=== PATIENT | female | born 1930 | race Asian ===

== ENCOUNTER 2019-02-09 12:37 | Inpatient (IN) ==
--- NOTE | 2019-02-09 14:13 | Pharmacy Consult Notes ---
[facility] Pharmacy VTE Monitoring - Patient Demographics Admission date: 02/09/19 Report Date: 02/09/19 Time: 14:13 Allergies/Adverse Reactions: Patient Allergies No Known Allergies Allergy (Verified 10/06/18 09:02) Height: 1.63 m Weight: 61.263 kg - VTE Risk Was VTE Risk Assessment Performed: Yes VTE Risk Level: Moderate Risk Clinical Trial Participant: No - Prophylaxis VTE Prophylaxis Ordered?: Yes Types of VTE Prophylaxis: TEDS Knee High Location of Applied Device: Not Applicable
[2019-02-09 14:35] LABS: Albumin Level 2.3 gm/dL (3.4-5.0); Albumin/Globulin Ratio 0.6 (1.1-1.8); Anion Gap 11.6 mEq/L (5-15); Bilirubin,Total 0.2 mg/dL (0.2-1.0); Calcium 8.9 mg/dL (8.5-10.1); Globulin 4.1 gm/dl (1.3-3.2); Total Protein,Serum 6.4 gm/dL (6.4-8.2)
[2019-02-09 14:38] LABS: Basophils # 0.1 K/mm3 (0-0.2); Basophils % 0.6 % (0.1-2.0); Eosinophils # 0.2 K/mm3 (0.0-0.4); Eosinophils % 2.1 % (0.1-12.0); Hematocrit 34.5 % (37.0-47.0); Lymphocytes # 0.9 K/mm3 (0.7-4.5); Lymphocytes % 10.4 % (10-50); Mean Corpuscular Volume 95.5 fl (81-99); Mean Platelet Volume 8.2 fl (7.4-10.4); Monocytes # 0.3 K/mm3 (0.1-1.0); Monocytes % 3.5 % (1.7-9.3); Neutrophils # 7.4 K/mm3 (1.8-7.8); Neutrophils % 83.3 % (37.0-80.0); Platelet Count 408 K/mm3 (142-424); Red Blood Count 3.61 M/mm3 (4.20-5.40); Red Cell Distribution Width 15.1 % (11.5-17.5); White Blood Count 8.8 K/mm3 (4.8-10.8)
--- NOTE | 2019-02-09 16:48 | History & Physical Report ---
*Admission Date: 02/09/19 <Kimmy Biggs 02/09/19 16:51> *Chief complaint: CHEST PAIN AND SOB <Kimmy Biggs 02/09/19 16:51> *History of present illness: Ms Prado is an 88 year old female with a history of HTN, COPD, ulcers, GERD, At fib, PE, and CAD who has been treated for a respiratory infection for the past week. She has completed a course of Zithromax. She was visited by Kimmy Biggs APRN at her residence in [facility]. The patient related that she actually felt worse with a productive cough, SOB and now with mid sternal CP with any activity. She described having CP when up to the bathroom which resolved with rest. She was eating and drinking less. She denied having CP at the time of the exam. Chest exam revealed bilateral crackles. She appeared ashen and dehydrated. Condition was discussed with Dr. Knox and she was admitted to [facility] due to chest pain and worsening pulmonary status after completion of the ABX. <Kimmy Biggs 02/09/19 17:18> [facility] History Medical History: Reports:: Arrhythmia, Atherosclerotic Heart Disease, Atrial Fibrillation, Congestive Heart Failure, Chronic Obstructive Pulmonary Disease (COPD), Coronary Artery Disease, Diabetes Mellitus Type 2, Gastroesophageal Reflux Disease(GERD), Gastrointestinal Bleed, Hyperlipidemia, Hypertension, Internal Pacemaker, Pulmonary Embolism, Ulcer Denies:: Cancer, MRSA <Kimmy Biggs 02/09/19 17:18> *Have you ever received a pneumonia vaccine?: Yes <Kimmy Biggs 02/09/19 16:51> *Have you received a flu vaccine this season?: Yes <Kimmy Biggs 02/09/19 16:51> Other Medical History: Reports: Anemia, Glaucoma <Kimmy Biggs 02/09/19 16:51> Other Surgeries: Yes: Cardiac Catheterization, Cardiac Surgery, Cholecystectomy, Pacemaker, Other ([facility]- no stents) <Kimmy Biggs 02/09/19 16:51> Amputation: No <Kimmy Biggs 02/09/19 16:51> Fractures: Yes (rt knee) <Kimmy Biggs 02/09/19 16:51> Comment: REPAIR OF FRACTURED PATELLA <Kimmy Biggs 19 16:51> - *Social History Educational Level: Completed High School <KalyanKimmy 02/09/19 16:51> Smoking Status: Former smoker <KalyanKimmy 02/09/19 16:51> Tobacco Type: cigarettes <KalyanKimmy 02/09/19 16:51> Alcohol Intake: never <KalyanKimmy 02/09/19 16:51> Alcohol Intake Frequency:: other <KalyanKimmy 02/09/19 16:51> Substance Use Type: denies use <KalyanKimmy 02/09/19 16:51> *Occupational Status:: retired <KalyanKimmy 02/09/19 16:51> Housing: assisted living facility <KalyanKimmy 02/09/19 16:51> Household Members: none <KalyanKimmy 02/09/19 16:51> *Travel in the last 8 weeks: None <BiggsKimmy 02/09/19 16:51> Family Hx:: Coronary Artery Disease, Hypertension <KalyanKimmy 02/09/19 17:18> Review of Systems - Constitutional Reports lack of energy, Denies fever(s), Denies headache(s) <BiggsKimmy 02/09/19 17:18> - ENT Denies ear pain, Denies sore throat <BiggsKimmy 02/09/19 17:18> - *Cardiovascular Reports chest pain, Reports chest pain with activity, Reports shortness of breath <BiggsKimmy 02/09/19 17:18> - *Respiratory Reports change in phlegm color, Reports chest congestion, Reports cough, Denies coughing up blood <BiggsKimmy - 02/09/19 17:18> - *Gastrointestinal Denies abdominal pain, Denies constipation, Denies nausea, Denies vomiting <Biggs,Kimmy - 02/09/19 17:18> - *Genitourinary Denies difficulty urinating <Biggs,Kimmy - 02/09/19 17:18> - *Musculoskeletal Reports muscle weakness, Denies body aches <Radha Biggshy 02/09/19 17:18> Comments: WALKS WITH A WALKER <Kimmy Biggs - 02/09/19 17:18> - *Neurologic Denies abnormal speech, Denies behavioral changes, Denies seizure-like activity, Denies headache(s) <Kimmy Biggs - 02/09/19 17:18> Meds Home Medications Medication Instructions Recorded Confirmed Type Saccharomyces adelinadii 250 mg 250 mg PO BID 09/09/17 02/09/19 History capsule apixaban 2.5 mg tablet 2.5 mg PO BID 09/09/17 02/09/19 History calcium carbonate 600 mg calcium 600 mg PO DAILY tab 09/09/17 02/09/19 History (1,500 mg) tablet mirtazapine 15 mg tablet 15 mg PO HS 09/09/17 02/09/19 History nitroglycerin 0.4 mg sublingual 0.4 mg SUBLINGUAL Q5-15M PRN 09/09/17 02/09/19 History tablet sennosides 8.6 mg tablet 8.6 mg PO BID PRN 09/09/17 02/09/19 History ferrous sulfate 325 mg (65 mg 325 mg PO BID tab 04/07/18 02/09/19 History iron) tablet metoprolol succinate ER 25 mg 50 mg PO BID tab 04/07/18 02/09/19 History tablet,extended release 24 hr verapamil ER 180 mg 24 hr 180 mg PO DAILY 04/07/18 02/09/19 History capsule,extended release Acetaminophen [Arthritis Pain 650 mg PO TID 02/09/19 02/09/19 History Relief] Ascorbic Acid 500 mg PO DAILY 02/09/19 02/09/19 History Atorvastatin Calcium [Lipitor 10mg 10 mg PO HS 02/09/19 02/09/19 History Tablet] Cholecalciferol (Vitamin D3) 2,000 units PO DAILY 02/09/19 02/09/19 History [Vitamin D3] Famotidine 40 mg PO HS 02/09/19 02/09/19 History Gabapentin [Neurontin 300mg 300 mg PO BID 02/09/19 02/09/19 History capsule] Loperamide HCl [Anti-Diarrhea] 2 mg PO DIRECTED 02/09/19 02/09/19 History Multivitamin [One-Daily 1 each PO DAILY 02/09/19 02/09/19 History Multi-Vitamin] Potassium Chloride [K-Tab ER 20 20 meq PO BID 02/09/19 02/09/19 History mEq] Vitamin B Complex [B Complex] 1 each PO DAILY 02/09/19 02/09/19 History <Kale Knox - 02/09/19 18:15> Allergies Allergy/AdvReac Type Severity Reaction Status Date / Time No Known Allergies Allergy Verified 10/06/18 09:02 <Kale Knox - 02/09/19 18:15> Exam Vital signs and Labs for Last 24 Hours: Temp Pulse Resp BP Pulse Ox 97.8 F 73 18 126/65 91 L 02/09/19 15:24 02/09/19 15:24 02/09/19 15:24 02/09/19 15:24 02/09/19 15:24 Laboratory Results - last 24 hr 02/09/19 14:10: Sodium 145, Potassium 4.6, Chloride 112 H, Carbon Dioxide 26, Anion Gap 11.6, BUN 27 H, Creatinine 0.79, Estimated Creat Clear 38, Estimated GFR 69, Est GFR ( Amer) 83, Glucose 85, Calcium 8.9, Total Bilirubin 0.2, AST 21, ALT 9 L, Alkaline Phosphatase 63, Total Protein 6.4, Albumin 2.3 L, Globulin 4.1 H, Albumin/Globulin Ratio 0.6 L 02/09/19 14:10: Mycoplasma pneumon IgM Non-reactive 02/09/19 14:10: Troponin I < 0.02 02/09/19 14:10: WBC 8.8, RBC 3.61 L, Hgb 10.0 L, Hct 34.5 L, MCV 95.5, MCH 27.7, MCHC 29.0 L, RDW 15.1, Plt Count 408, MPV 8.2, Neut % (Auto) 83.3 H, Lymph % (Auto) 10.4, [place] % (Auto) 3.5, Eos % (Auto) 2.1, Baso % (Auto) 0.6, Neut # (Auto) 7.4, Lymph # (Auto) 0.9, [place] # (Auto) 0.3, Eos # (Auto) 0.2, Baso # (Auto) 0.1 <Kale Knox - 02/09/19 18:15> Temp Pulse Resp BP Pulse Ox 97.8 F 73 18 126/65 91 L 02/09/19 15:24 02/09/19 15:24 02/09/19 15:24 02/09/19 15:24 02/09/19 15:24 Laboratory Results - last 24 hr 02/09/19 14:10: Sodium 145, Potassium 4.6, Chloride 112 H, Carbon Dioxide 26, Anion Gap 11.6, BUN 27 H, Creatinine 0.79, Estimated Creat Clear 38, Estimated GFR 69, Est GFR ( Amer) 83, Glucose 85, Calcium 8.9, Total Bilirubin 0.2, AST 21, ALT 9 L, Alkaline Phosphatase 63, Total Protein 6.4, Albumin 2.3 L, Globulin 4.1 H, Albumin/Globulin Ratio 0.6 L 02/09/19 14:10: Troponin I < 0.02 02/09/19 14:10: WBC 8.8, RBC 3.61 L, Hgb 10.0 L, Hct 34.5 L, MCV 95.5, MCH 27.7, MCHC 29.0 L, RDW 15.1, Plt Count 408, MPV 8.2, Neut % (Auto) 83.3 H, Lymph % (Auto) 10.4, [place] % (Auto) 3.5, Eos % (Auto) 2.1, Baso % (Auto) 0.6, Neut # (Auto) 7.4, Lymph # (Auto) 0.9, [place] # (Auto) 0.3, Eos # (Auto) 0.2, Baso # (Auto) 0.1 <Kimmy Biggs - 02/09/19 16:51> I & O for Last 24 hours: Intake & Output 02/07/19 02/08/19 02/09/19 02/10/19 11:59 11:59 11:59 11:59 Intake Total 120 / 120 Balance 120 / 120 Weight 135 lb 1 oz <Kale Knox - 02/09/19 18:15> Intake & Output 02/07/19 02/08/19 02/09/19 02/10/19 11:59 11:59 11:59 11:59 Intake Total 60 / 60 Balance 60 / 60 Weight 135 lb 1 oz <Kimmy Biggs - 02/09/19 16:51> Radiology Reports for the Last 24 Hours: CXR 02/09/19 IMPRESSION: Left lower lobe pneumonia/volume loss with effusion. <Kimmy Biggs 02/09/19 17:18> - Constitutional no acute distress <Kimmy Biggs 02/09/19 17:18> Comments: sitting in recliner in her room at and appears not to feel well <Kimmy Biggs 02/09/19 17:18> - *Routine HEENT Exam Head: Present: normocephalic, atraumatic <Kimmy Biggs 02/09/19 17:18> Eye: Absent: conjunctival icterus, scleral injection <Kimmy Biggs 02/09/19 17:18> ENT: Present: mucous membranes moist <Kimmy Biggs 02/09/19 17:18> - *Routine Neck Exam Absent: lymphadenopathy, thyromegaly <Kimmy Biggs 02/09/19 17:18> - *Routine Respiratory Exam Comments: bilateral basilar crackles > on the right <Kimmy Biggs 02/09/19 17:18> - *Routine Cardiovascular Exam Present: RRR <Kimmy Biggs 02/09/19 17:18> - *Routine Abdominal Exam Present: soft, normoactive bowel sounds. Absent: tenderness <Kimmy Biggs 02/09/19 17:18> - *Routine Extremities Exam Absent: edema <Kimmy Biggs 02/09/19 17:18> - *Routine Neurological Exam Present: alert, oriented X3 <[facility] 02/09/19 17:18> Assessment and Plan (1) Pneumonia Current visit: Yes Status: Acute Category: Medical Code(s): J18.9 - Pneumonia, unspecified organism (2) Chest pain Current visit: No Status: Acute Qualifiers: Qualified Code(s): R07.2 - Precordial pain Category: Medical Code(s): R07.9 - Chest pain, unspecified (3) CAD (coronary artery disease) Current visit: No Status: Chronic Qualifiers: Coronary Disease-Associated Artery/Lesion type: [place] artery [place] vs. transplanted heart: [place] heart Associated angina: without angina Qualified Code(s): I25.10 - Atherosclerotic heart disease of [place] coronary artery without angina pectoris Category: Medical Code(s): I25.10 - Atherosclerotic heart disease of [place] coronary artery without angina pectoris (4) COPD (chronic obstructive pulmonary disease) Current visit: No Status: Chronic Qualifiers: COPD type: unspecified COPD Qualified Code(s): J44.9 - Chronic obstructive pulmonary disease, unspecified Category: Medical Code(s): J44.9 - Chronic obstructive pulmonary disease, unspecified (5) History of atrial fibrillation Current visit: No Status: Chronic Category: Medical Code(s): Z86.79 - Personal history of other diseases of the circulatory system (6) Neuropathy Current visit: No Status: Chronic Category: Medical Code(s): G62.9 - Polyneuropathy, unspecified (7) PAF (paroxysmal atrial fibrillation) Current visit: No Status: Chronic Category: Medical Code(s): I48.0 - Paroxysmal atrial fibrillation (8) Pacemaker Current visit: No Status: Chronic Category: Medical Code(s): Z95.0 - Presence of cardiac pacemaker <Kale Knox - 02/09/19 18:15> (1) Pneumonia Current visit: Yes Status: Acute Category: Medical Code(s): J18.9 - Pneumonia, unspecified organism (2) Chest pain Current visit: No Status: Acute Qualifiers: Qualified Code(s): R07.2 - Precordial pain Category: Medical Code(s): R07.9 - Chest pain, unspecified (3) CAD (coronary artery disease) Current visit: No Status: Chronic Qualifiers: Coronary Disease-Associated Artery/Lesion type: [place] artery [place] vs. transplanted heart: [place] heart Associated angina: without angina Qualified Code(s): I25.10 - Atherosclerotic heart disease of [place] coronary artery without angina pectoris Category: Medical Code(s): I25.10 - Atherosclerotic heart disease of [place] coronary artery without angina pectoris (4) COPD (chronic obstructive pulmonary disease) Current visit: No Status: Chronic Qualifiers: COPD type: unspecified COPD Qualified Code(s): J44.9 - Chronic obstructive pulmonary disease, unspecified Category: Medical Code(s): J44.9 - Chronic obstructive pulmonary disease, unspecified (5) History of atrial fibrillation Current visit: No Status: Chronic Category: Medical Code(s): Z86.79 - Personal history of other diseases of the circulatory system (6) Neuropathy Current visit: No Status: Chronic Category: Medical Code(s): G62.9 - Polyneuropathy, unspecified (7) PAF (paroxysmal atrial fibrillation) Current visit: No Status: Chronic Category: Medical Code(s): I48.0 - Paroxysmal atrial fibrillation (8) Pacemaker Current visit: No Status: Chronic Category: Medical Code(s): Z95.0 - Presence of cardiac pacemaker <Kimmy Biggs - 02/09/19 16:52> - Assessment and plan all Dx Assessment and Plan for all problems:: Patient seen and examined. Concur with asessment and plan as outlined above. <Kale Knox - 02/09/19 18:15> labs, ABX, DUONEBS, and gentle hydration <Kimmy Biggs - 02/09/19 17:18>
[2019-02-10 06:14] LABS: Basophils # 0.1 K/mm3 (0-0.2); Basophils % 0.9 % (0.1-2.0); Eosinophils # 0.3 K/mm3 (0.0-0.4); Eosinophils % 3.7 % (0.1-12.0); Hematocrit 32.7 % (37.0-47.0); Hemoglobin 9.6 g/dL (12.2-16.2); Lymphocytes # 0.7 K/mm3 (0.7-4.5); Mean Corpuscular HGB Conc 29.5 g/dL (31.8-35.4); Mean Corpuscular Volume 94.3 fl (81-99); Mean Platelet Volume 7.7 fl (7.4-10.4); Monocytes # 0.3 K/mm3 (0.1-1.0); Monocytes % 4.3 % (1.7-9.3); Neutrophils # 6.2 K/mm3 (1.8-7.8); Neutrophils % 82.2 % (37.0-80.0); Platelet Count 362 K/mm3 (142-424); Red Blood Count 3.47 M/mm3 (4.20-5.40); Red Cell Distribution Width 15.1 % (11.5-17.5); White Blood Count 7.6 K/mm3 (4.8-10.8)
[2019-02-10 06:18] LABS: Anion Gap 10.2 mEq/L (5-15); Calcium 8.2 mg/dL (8.5-10.1)
--- NOTE | 2019-02-10 08:25 | Progress Note ---
<Kimmy Biggs - Last Filed: 02/10/19 08:22> Internal Medicine - PN: Subj *Date: 02/10/19 *Time: 08:22 Interval history: Patient thinks she is better today. She is ambulating to the bathroom. She gets short of breath but denies having any chest pain with activity. She has a nonproductive cough mostly. She eats very poorly. She states bowels have moved and she is voiding QS. Exam Vital signs and Labs for Last 24 Hours: Temp Pulse Resp BP Pulse Ox 98.4 F 81 22 120/45 L 95 02/10/19 08:00 02/10/19 08:00 02/10/19 08:00 02/10/19 08:00 02/10/19 08:00 Laboratory Results - last 24 hr 02/09/19 14:10: Sodium 145, Potassium 4.6, Chloride 112 H, Carbon Dioxide 26, Anion Gap 11.6, BUN 27 H, Creatinine 0.79, Estimated Creat Clear 38, Estimated GFR 69, Est GFR ( Amer) 83, Glucose 85, Calcium 8.9, Total Bilirubin 0.2, AST 21, ALT 9 L, Alkaline Phosphatase 63, Total Protein 6.4, Albumin 2.3 L, Globulin 4.1 H, Albumin/Globulin Ratio 0.6 L 02/09/19 14:10: Mycoplasma pneumon IgM Non-reactive 02/09/19 14:10: Troponin I < 0.02 02/09/19 14:10: WBC 8.8, RBC 3.61 L, Hgb 10.0 L, Hct 34.5 L, MCV 95.5, MCH 27.7, MCHC 29.0 L, RDW 15.1, Plt Count 408, MPV 8.2, Neut % (Auto) 83.3 H, Lymph % (Auto) 10.4, [place] % (Auto) 3.5, Eos % (Auto) 2.1, Baso % (Auto) 0.6, Neut # (Auto) 7.4, Lymph # (Auto) 0.9, [place] # (Auto) 0.3, Eos # (Auto) 0.2, Baso # (Auto) 0.1 02/09/19 14:10: Lactate 0.9 02/09/19 14:50: B-Natriuretic Peptide 154 H 02/10/19 05:41: WBC 7.6, RBC 3.47 L, Hgb 9.6 L, Hct 32.7 L, MCV 94.3, MCH 27.8, MCHC 29.5 L, RDW 15.1, Plt Count 362, MPV 7.7, Neut % (Auto) 82.2 H, Lymph % (Auto) 9.0 L, [place] % (Auto) 4.3, Eos % (Auto) 3.7, Baso % (Auto) 0.9, Neut # (Auto) 6.2, Lymph # (Auto) 0.7, [place] # (Auto) 0.3, Eos # (Auto) 0.3, Baso # (Auto) 0.1 02/10/19 05:41: Sodium 145, Potassium 4.2, Chloride 112 H, Carbon Dioxide 27, Anion Gap 10.2, BUN 20 H D, Creatinine 0.85, Estimated Creat Clear 39, Estimated GFR 63, Est GFR ( Amer) 77, Glucose 80, Calcium 8.2 L I & O for Last 24 hours: Intake & Output 02/07/19 02/08/19 02/09/19 02/10/19 11:59 11:59 11:59 11:59 Intake Total 1540 / 1540 Output Total 750 / 750 Balance 790 / 790 Weight 136 lb 8 oz - Constitutional no acute distress Comments: Appears comfortable and is breathing easily. - *Routine Respiratory Exam Comments: Decreased breath sounds on the left with crackles on the right posteriorly. - *Routine Cardiovascular Exam Present: RRR, murmur - *Routine Abdominal Exam Present: soft, normoactive bowel sounds. Absent: tenderness - *Routine Extremities Exam Absent: edema, calf tenderness - *Routine Neurological Exam Present: alert, oriented X3 Assessment and Plan (1) Pneumonia Current visit: Yes Status: Acute Category: Medical Code(s): J18.9 - Pneumonia, unspecified organism (2) Chest pain Current visit: No Status: Acute Qualifiers: Qualified Code(s): R07.2 - Precordial pain Category: Medical Code(s): R07.9 - Chest pain, unspecified (3) CAD (coronary artery disease) Current visit: No Status: Chronic Qualifiers: Coronary Disease-Associated Artery/Lesion type: [place] artery [place] vs. transplanted heart: [place] heart Associated angina: without angina Qualified Code(s): I25.10 - Atherosclerotic heart disease of [place] coronary artery without angina pectoris Category: Medical Code(s): I25.10 - Atherosclerotic heart disease of [place] coronary artery without angina pectoris (4) COPD (chronic obstructive pulmonary disease) Current visit: No Status: Chronic Qualifiers: COPD type: unspecified COPD Qualified Code(s): J44.9 - Chronic obstructive pulmonary disease, unspecified Category: Medical Code(s): J44.9 - Chronic obstructive pulmonary disease, unspecified (5) History of atrial fibrillation Current visit: No Status: Chronic Category: Medical Code(s): Z86.79 - Personal history of other diseases of the circulatory system (6) Neuropathy Current visit: No Status: Chronic Category: Medical Code(s): G62.9 - Polyneuropathy, unspecified (7) PAF (paroxysmal atrial fibrillation) Current visit: No Status: Chronic Category: Medical Code(s): I48.0 - Paroxysmal atrial fibrillation (8) Pacemaker Current visit: No Status: Chronic Category: Medical Code(s): Z95.0 - Presence of cardiac pacemaker - Assessment and plan all Dx Assessment and Plan for all problems:: Continue with pneumonia protocol. She will try sitting in the chair today. <Kale Knox - Last Filed: 02/10/19 09:48> Internal Medicine - PN: Subj *Date: 02/10/19 *Time: 09:48 Exam Vital signs and Labs for Last 24 Hours: Temp Pulse Resp BP Pulse Ox 98.4 F 81 22 120/45 L 95 02/10/19 08:00 02/10/19 08:00 02/10/19 08:00 02/10/19 08:00 02/10/19 08:00 Laboratory Results - last 24 hr 02/09/19 14:10: Sodium 145, Potassium 4.6, Chloride 112 H, Carbon Dioxide 26, Anion Gap 11.6, BUN 27 H, Creatinine 0.79, Estimated Creat Clear 38, Estimated GFR 69, Est GFR ( Amer) 83, Glucose 85, Calcium 8.9, Total Bilirubin 0.2, AST 21, ALT 9 L, Alkaline Phosphatase 63, Total Protein 6.4, Albumin 2.3 L, Globulin 4.1 H, Albumin/Globulin Ratio 0.6 L 02/09/19 14:10: Mycoplasma pneumon IgM Non-reactive 02/09/19 14:10: Troponin I < 0.02 02/09/19 14:10: WBC 8.8, RBC 3.61 L, Hgb 10.0 L, Hct 34.5 L, MCV 95.5, MCH 27.7, MCHC 29.0 L, RDW 15.1, Plt Count 408, MPV 8.2, Neut % (Auto) 83.3 H, Lymph % (Auto) 10.4, [place] % (Auto) 3.5, Eos % (Auto) 2.1, Baso % (Auto) 0.6, Neut # ([place] to) 7.4, Lymph # (Auto) 0.9, [place] # (Auto) 0.3, Eos # (Auto) 0.2, Baso # (Auto) 0.1 02/09/19 14:10: Lactate 0.9 02/09/19 14:50: B-Natriuretic Peptide 154 H 02/10/19 05:41: WBC 7.6, RBC 3.47 L, Hgb 9.6 L, Hct 32.7 L, MCV 94.3, MCH 27.8, MCHC 29.5 L, RDW 15.1, Plt Count 362, MPV 7.7, Neut % (Auto) 82.2 H, Lymph % (Auto) 9.0 L, [place] % (Auto) 4.3, Eos % (Auto) 3.7, Baso % (Auto) 0.9, Neut # (Auto) 6.2, Lymph # (Auto) 0.7, [place] # (Auto) 0.3, Eos # (Auto) 0.3, Baso # (Auto) 0.1 02/10/19 05:41: Sodium 145, Potassium 4.2, Chloride 112 H, Carbon Dioxide 27, Anion Gap 10.2, BUN 20 H D, Creatinine 0.85, Estimated Creat Clear 39, Estimated GFR 63, Est GFR ( Amer) 77, Glucose 80, Calcium 8.2 L I & O for Last 24 hours: Intake & Output 02/07/19 02/08/19 02/09/19 02/10/19 11:59 11:59 11:59 11:59 Intake Total 1540 / 1540 Output Total 750 / 750 Balance 790 / 790 Weight 136 lb 8 oz Assessment and Plan (1) Pneumonia Current visit: Yes Status: Acute Category: Medical Code(s): J18.9 - Pneumonia, unspecified organism (2) Chest pain Current visit: No Status: Acute Qualifiers: Qualified Code(s): R07.2 - Precordial pain Category: Medical Code(s): R07.9 - Chest pain, unspecified (3) CAD (coronary artery disease) Current visit: No Status: Chronic Qualifiers: Coronary Disease-Associated Artery/Lesion type: [place] artery [place] vs. transplanted heart: [place] heart Associated angina: without angina Qualified Code(s): I25.10 - Atherosclerotic heart disease of [place] coronary artery without angina pectoris Category: Medical Code(s): I25.10 - Atherosclerotic heart disease of [place] coronary artery without angina pectoris (4) COPD (chronic obstructive pulmonary disease) Current visit: No Status: Chronic Qualifiers: COPD type: unspecified COPD Qualified Code(s): J44.9 - Chronic obstructive pulmonary disease, unspecified Category: Medical Code(s): J44.9 - Chronic obstructive pulmonary disease, unspecified (5) History of atrial fibrillation Current visit: No Status: Chronic Category: Medical Code(s): Z86.79 - Personal history of other diseases of the circulatory system (6) Neuropathy Current visit: No Status: Chronic Category: Medical Code(s): G62.9 - Polyneuropathy, unspecified (7) PAF (paroxysmal atrial fibrillation) Current visit: No Status: Chronic Category: Medical Code(s): I48.0 - Paroxysmal atrial fibrillation (8) Pacemaker Current visit: No Status: Chronic Category: Medical Code(s): Z95.0 - Pre sence of cardiac pacemaker - Assessment and plan all Dx Assessment and Plan for all problems:: Patient seen and examined this morning. Concur with above. She looks and feels better. Continue current regimen.
--- NOTE | 2019-02-11 08:38 | Progress Note ---
Internal Medicine - PN: Subj *Date: 02/11/19 *Time: 08:36 Interval history: Patient states she still feels poorly today. She has shortness of breath with any exertion. She states she does feel less short of breath at rest. She still has a cough but it is improved. She was able to sleep last night and ate a good breakfast this morning. She denies any pain. Exam Vital signs and Labs for Last 24 Hours: Temp Pulse Resp BP Pulse Ox 98.1 F 81 18 132/50 L 94 L 02/11/19 08:00 02/11/19 08:00 02/11/19 08:00 02/11/19 08:00 02/11/19 08:00 I & O for Last 24 hours: Intake & Output 02/08/19 02/09/19 02/10/19 02/11/19 11:59 11:59 11:59 11:59 Intake Total 1540 / 1540 2297 / 2297 Output Total 750 / 750 300 / 300 Balance 790 / 790 1996 Weight 136 lb 8 oz 140 lb 5 oz - Constitutional no acute distress - *Routine Respiratory Exam Present: decreased breath sounds (left base), rales (right base) - *Routine Cardiovascular Exam Present: RRR - *Routine Abdominal Exam Present: soft, normoactive bowel sounds. Absent: tenderness - *Routine Extremities Exam Absent: cyanosis, clubbing, edema - *Routine Skin Exam Present: warm. Absent: rash - *Routine Neurological Exam Present: alert, oriented X3 Assessment and Plan (1) Pneumonia Current visit: Yes Status: Acute Category: Medical Code(s): J18.9 - Pneumonia, unspecified organism (2) Chest pain Current visit: No Status: Acute Qualifiers: Qualified Code(s): R07.2 - Precordial pain Category: Medical Code(s): R07.9 - Chest pain, unspecified (3) CAD (coronary artery disease) Current visit: No Status: Chronic Qualifiers: Coronary Disease-Associated Artery/Lesion type: [place] artery [place] vs. transplanted heart: [place] heart Associated angina: without angina Qualified Code(s): I25.10 - Atherosclerotic heart disease of [place] coronary artery without angina pectoris Category: Medical Code(s): I25.10 - Atherosclerotic heart disease of [place] coronary artery without angina pectoris (4) COPD (chronic obstructive pulmonary disease) Current visit: No Status: Chronic Qualifiers: COPD type: unspecified COPD Qualified Code(s): J44.9 - Chronic obstructive pulmonary disease, unspecified Category: Medical Code(s): J44.9 - Chronic obstructive pulmonary disease, unspecified (5) History of atrial fibrillation Current visit: No Status: Chronic Category: Medical Code(s): Z86.79 - Personal history of other diseases of the circulatory system (6) Neuropathy Current visit: No Status: Chronic Category: Medical Code(s): G62.9 - Polyneuropathy, unspecified (7) PAF (paroxysmal atrial fibrillation) Current visit: No Status: Chronic Category: Medical Code(s): I48.0 - Paroxysmal atrial fibrillation (8) Pacemaker Current visit: No Status: Chronic Category: Medical Code(s): Z95.0 - Presence of cardiac pacemaker - Assessment and plan all Dx Assessment and Plan for all problems:: We will get a repeat chest x-ray today. We will continue pneumonia protocol.
--- NOTE | 2019-02-12 08:12 | Progress Note ---
Internal Medicine - PN: Subj *Date: 02/12/19 *Time: 08:09 Interval history: Patient states she still does not feel well. She gets very short of breath when up and moving. Her cough has improved slightly. She denies any shortness of breath at rest. She did sleep well last night but is not hungry this morning. Exam Vital signs and Labs for Last 24 Hours: Temp Pulse Resp BP Pulse Ox 97.6 F 73 18 131/56 L 93 L 02/12/19 04:04 02/12/19 06:22 02/12/19 04:04 02/12/19 04:04 02/12/19 04:04 I & O for Last 24 hours: Intake & Output 02/09/19 02/10/19 02/11/19 02/12/19 11:59 11:59 11:59 11:59 Intake Total 1540 / 1540 2297 / 2297 2188 / 2188 Output Total 750 / 750 500 / 500 200 / 200 Balance 790 / 790 1797 / 1797 1987 / 1987 Weight 136 lb 8 oz 140 lb 5 oz 142 lb 1 oz Microbiology Reports for the Last 24 Hours: Microbiology 02/09/19 14:35 Blood Blood Culture - Preliminary NO GROWTH AFTER 48 HOURS 02/09/19 14:10 Blood Blood Culture - Preliminary NO GROWTH AFTER 48 HOURS Radiology Reports for the Last 24 Hours: CXR Probable interval increase in size of the left pleural effusion along with probable underlying infiltrate. - Constitutional no acute distress - *Routine Respiratory Exam Present: decreased breath sounds (left base), rales (right base) - *Routine Cardiovascular Exam Present: RRR - *Routine Abdominal Exam Present: soft, normoactive bowel sounds. Absent: tenderness - *Routine Extremities Exam Absent: cyanosis, clubbing, edema - *Routine Skin Exam Present: warm. Absent: rash - *Routine Neurological Exam Present: alert, oriented X3 Assessment and Plan (1) Pneumonia Current visit: Yes Status: Acute Category: Medical Code(s): J18.9 - Pneumonia, unspecified organism (2) Chest pain Current visit: No Status: Acute Qualifiers: Qualified Code(s): R07.2 - Precordial pain Category: Medical Code(s): R07.9 - Chest pain, unspecified (3) CAD (coronary artery disease) Current visit: No Status: Chronic Qualifiers: Coronary Disease-Associated Artery/Lesion type: [place] artery [place] vs. transplanted heart: [place] heart Associated angina: without angina Qualified Code(s): I25.10 - Atherosclerotic heart disease of [place] coronary artery without angina pectoris Category: Medical Code(s): I25.10 - Atherosclerotic heart disease of [place] coronary artery without angina pectoris (4) COPD (chronic obstructive pulmonary disease) Current visit: No Status: Chronic Qualifiers: COPD type: unspecified COPD Qualified Code(s): J44.9 - Chronic obstructive pulmonary disease, unspecified Category: Medical Code(s): J44.9 - Chronic obstructive pulmonary disease, unspecified (5) History of atrial fibrillation Current visit: No Status: Chronic Category: Medical Code(s): Z86.79 - Personal history of other diseases of the circulatory system (6) Neuropathy Current visit: No Status: Chronic Category: Medical Code(s): G62.9 - Polyneuropathy, unspecified (7) PAF (paroxysmal atrial fibrillation) Current visit: No Status: Chronic Category: Medical Code(s): I48.0 - Paroxysmal atrial fibrillation (8) Pacemaker Current visit: No Status: Chronic Category: Medical Code(s): Z95.0 - Presence of cardiac pacemaker - Assessment and plan all Dx Assessment and Plan for all problems:: Patient slowly improving symptomatically. Will discuss further care with Dr. Morgan.
--- NOTE | 2019-02-12 08:14 | Electrocardiograph Report ---
APPROVED REPORT Exam: Resting ECG HR:72 bpm ECG Measurements Heart Rate 72 AXES IA 118 P 30 QRSd 82 QRS 48 QT 422 T33 QTc 462 <Conclusion> Electronic atrial pacemaker Low voltage QRS Borderline ECG Electronically signed by : Anthony Carlson, 02/12/2019 08:14:17
[2019-02-12 08:15] LABS: Anion Gap 8.5 mEq/L (5-15)
[2019-02-12 08:53] LABS: Basophils % 0.5 % (0.1-2.0); Eosinophils # 0.2 K/mm3 (0.0-0.4); Eosinophils % 2.2 % (0.1-12.0); Hematocrit 32.7 % (37.0-47.0); Hemoglobin 9.2 g/dL (12.2-16.2); Lymphocytes # 0.9 K/mm3 (0.7-4.5); Lymphocytes % 12.5 % (10-50); Mean Corpuscular HGB Conc 28.1 g/dL (31.8-35.4); Mean Platelet Volume 8.4 fl (7.4-10.4); Monocytes # 0.3 K/mm3 (0.1-1.0); Monocytes % 4.4 % (1.7-9.3); Neutrophils # 5.8 K/mm3 (1.8-7.8); Neutrophils % 80.4 % (37.0-80.0); Platelet Count 346 K/mm3 (142-424); Red Cell Distribution Width 15.3 % (11.5-17.5); White Blood Count 7.2 K/mm3 (4.8-10.8)
[2019-02-12 15:05] LABS: Calcium 7.3 mg/dL (8.5-10.1)
--- NOTE | 2019-02-12 16:12 | Consult Report ---
*Admission Date: 02/09/19 *Reason for consult:: Left pleural effusion *History of present illness: This is an 88-year-old female seen in consultation from the service of Dr. Morgan for possible left thoracentesis. She has been diagnosed with a significant left-sided effusion (confirmed by chest CT) that is felt to most likely be parapneumonic. Currently, she is somewhat short of breath and is amenable to thoracentesis. She understands the risks and benefits. She understands the risks of recurrent effusion, bleeding, pneumothorax, and infection. Review of Systems - *Respiratory Reports shortness of breath - *Neurologic Denies abnormal speech, Denies behavioral changes, Denies seizure-like activity, Denies headache(s) [facility] [place] History Medical History: Reports:: Arrhythmia, Atherosclerotic Heart Disease, Atrial Fibrillation, Congestive Heart Failure, Chronic Obstructive Pulmonary Disease (COPD), Coronary Artery Disease, Diabetes Mellitus Type 2, Gastroesophageal Reflux Disease(GERD), Gastrointestinal Bleed, Hyperlipidemia, Hypertension, Internal Pacemaker, Pulmonary Embolism, Ulcer Denies:: Cancer, MRSA *Have you ever received a pneumonia vaccine?: Yes *Have you received a flu vaccine this season?: Yes Other Medical History: Reports: Anemia, Glaucoma Other Surgeries: Yes: Cardiac Catheterization, Cardiac Surgery, Cholecystectomy, Pacemaker, Other ([facility]- no stents) Amputation: No Fractures: Yes (rt knee) - *Social History Educational Level: Completed High School Smoking Status: Former smoker Tobacco Type: cigarettes Alcohol Intake: never Alcohol Intake Frequency:: other Substance Use Type: denies use *Occupational Status:: retired Housing: assisted living facility Household Members: none *Travel in the last 8 weeks: None Family Hx:: Coronary Artery Disease, Hypertension Meds Home Medications Medication Instructions Recorded Confirmed Type Saccharomyces boulardii 250 mg 250 mg PO BID 09/09/17 02/09/19 History capsule apixaban 2.5 mg tablet 2.5 mg PO BID 09/09/17 02/09/19 History calcium carbonate 600 mg calcium 600 mg PO DAILY tab 09/09/17 02/09/19 History (1,500 mg) tablet mirtazapine 15 mg tablet 15 mg PO HS 09/09/17 02/09/19 History nitroglycerin 0.4 mg sublingual 0.4 mg SUBLINGUAL Q5-15M PRN 09/09/17 02/09/19 History tablet sennosides 8.6 mg tablet 8.6 mg PO BID PRN 09/09/17 02/09/19 History ferrous sulfate 325 mg (65 mg 325 mg PO BID tab 04/07/18 02/09/19 History iron) tablet metoprolol succinate ER 25 mg 50 mg PO BID tab 04/07/18 02/09/19 History tablet,extended release 24 hr verapamil ER 180 mg 24 hr 180 mg PO DAILY 04/07/18 02/09/19 History capsule,extended release Acetaminophen [Arthritis Pain 650 mg PO TID 02/09/19 02/09/19 History Relief] Ascorbic Acid 500 mg PO DAILY 02/09/19 02/09/19 History Atorvastatin Calcium [Lipitor 10mg 10 mg PO HS 02/09/19 02/09/19 History Tablet] Cholecalciferol (Vitamin D3) 2,000 units PO DAILY 02/09/19 02/09/19 History [Vitamin D3] Famotidine 40 mg PO HS 02/09/19 02/09/19 History Gabapentin [Neurontin 300mg 300 mg PO BID 02/09/19 02/09/19 History capsule] Loperamide HCl [Anti-Diarrhea] 2 mg PO DIRECTED 02/09/19 02/09/19 History Multivitamin [One-Daily 1 each PO DAILY 02/09/19 02/09/19 History Multi-Vitamin] Potassium Chloride [K-Tab ER 20 20 meq PO BID 02/09/19 02/09/19 History mEq] Vitamin B Complex [B Complex] 1 each PO DAILY 02/09/19 02/09/19 History Allergies Allergy/AdvReac Type Severity Reaction Status Date / Time No Known Allergies Allergy Verified 10/06/18 09:02 Exam Vital signs and Labs for Last 24 Hours: Temp Pulse Resp BP Pulse Ox 97.7 F 72 18 100/39 L 95 02/12/19 12:00 02/12/19 12:00 02/12/19 12:00 02/12/19 12:00 02/12/19 12:00 Laboratory Results - last 24 hr 02/12/19 08:03: WBC 7.2, RBC 3.30 L, Hgb 9.2 L, Hct 32.7 L, MCV 99.0, MCH 27.8, MCHC 28.1 L, RDW 15.3, Plt Count 346, MPV 8.4, Neut % (Auto) 80.4 H, Lymph % (Auto) 12.5, [place] % (Auto) 4.4, Eos % (Auto) 2.2, Baso % (Auto) 0.5, Neut # (Auto) 5.8, Lymph # (Auto) 0.9, [place] # (Auto) 0.3, Eos # (Auto) 0.2, Baso # (Auto) 0.0 02/12/19 08:03: Sodium 145, Potassium 3.5, Chloride 114 H, Carbon Dioxide 26, Anion Gap 8.5, BUN 14 D, Creatinine 0.62 D, Estimated Creat Clear 40, Estimated GFR 91, Est GFR ( Amer) 110 D, Glucose 85, Calcium 7.3 L D 02/12/19 09:40: Stl Aeromonas (PCR) Not detected, Stl C. cayetanensis PCR Not detected, Stool Rotavirus (PCR) Not detected, Stl Adenov F 40/41 PCR Not detected, Stool Astrovirus (PCR) Not detected, Stool Campylobacter PCR Not detected, Stl C.difficile Tox PCR Not detected, Stool Cryptosporidium PCR Not detected, Stl E.coli Shiga Tox PCR Not detected, Stool E coli O157 PCR Not detected, Stl Enterotoxigenic E PCR Not detected, Stool EPEC (PCR) Not detected, Stool EAEC (PCR) Not detected, Stl E. histolytica PCR Not detected, Stool Giardia Lamblia PCR Not detected, Stool Salmonella PCR Not detected, Stool Sapovirus (PCR) Not detected, Stl P. shigelloides PCR Not detected, Stl Shigella/EIEC PCR Not detected, St Y.enterocolitica PCR Not detected, Stool Vibrio (PCR) Not detected, Stl Vibrio cholerae PCR Not detected, Stl Norovirus GI/GII PCR Not detected I & O for Last 24 hours: Intake & Output 02/10/19 02/11/19 02/12/19 02/13/19 11:59 11:59 11:59 11:59 Intake Total 1540 / 1540 2297 / 2297 2188 / 2188 Output Total 750 / 750 500 / 500 300 / 300 Balance 790 / 790 1797 / 1797 1888 / 1888 Weight 136 lb 8 oz 140 lb 5 oz 142 lb 1 oz Microbiology Reports for the Last 24 Hours: Microbiology 02/09/19 14:35 Blood Blood Culture - Preliminary NO GROWTH AFTER 48 HOURS 02/09/19 14:10 Blood Blood Culture - Preliminary NO GROWTH AFTER 48 HOURS - Constitutional no acute distress - *Routine Respiratory Exam Present: decreased breath sounds. Absent: respiratory distress Comments: left > right - *Routine Cardiovascular Exam Present: RRR Results - Labs 02/12/19 08:03 02/12/19 08:03 Laboratory Results - last 24 hr 02/12/19 08:03: WBC 7.2, RBC 3.30 L, Hgb 9.2 L, Hct 32.7 L, MCV 99.0, MCH 27.8, MCHC 28.1 L, RDW 15.3, Plt Count 346, MPV 8.4, Neut % (Auto) 80.4 H, Lymph % (Auto) 12.5, [place] % (Auto) 4.4, Eos % (Auto) 2.2, Baso % (Auto) 0.5, Neut # (Auto) 5.8, Lymph # (Auto) 0.9, [place] # (Auto) 0.3, Eos # (Auto) 0.2, Baso # (Auto) 0.0 02/12/19 08:03: Sodium 145, Potassium 3.5, Chloride 114 H, Carbon Dioxide 26, Anion Gap 8.5, BUN 14 D, Creatinine 0.62 D, Estimated Creat Clear 40, Estimated GFR 91, Est GFR ( Amer) 110 D, Glucose 85, Calcium 7.3 L D 02/12/19 09:40: Stl Aeromonas (PCR) Not detected, Stl C. cayetanensis PCR Not detected, Stool Rotavirus (PCR) Not detected, Stl Adenov F 40/41 PCR Not detected, Stool Astrovirus (PCR) Not detected, Stool Campylobacter PCR Not detected, Stl C.difficile Tox PCR Not detected, Stool Cryptosporidium PCR Not detected, Stl E.coli Shiga Tox PCR Not detected, Stool E coli O157 PCR Not detected, Stl Enterotoxigenic E PCR Not detected, Stool EPEC (PCR) Not detected, Stool EAEC (PCR) Not detected, Stl E. histolytica PCR Not detected, Stool Giardia Lamblia PCR Not detected, Stool Salmonella PCR Not detected, Stool Sapovirus (PCR) Not detected, Stl P. shigelloides PCR Not detected, Stl Shigella/EIEC PCR Not detected, St Y.enterocolitica PCR Not detected, Stool Vibrio (PCR) Not detected, Stl Vibrio cholerae PCR Not detected, Stl Norovirus GI/GII PCR Not detected Assessment and Plan (1) Pneumonia Current visit: Yes Status: Acute Category: Medical Code(s): J18.9 - Pn eumonia, unspecified organism (2) Chest pain Current visit: No Status: Acute Qualifiers: Qualified Code(s): R07.2 - Precordial pain Category: Medical Code(s): R07.9 - Chest pain, unspecified (3) CAD (coronary artery disease) Current visit: No Status: Chronic Qualifiers: Coronary Disease-Associated Artery/Lesion type: [place] artery [place] vs. transplanted heart: [place] heart Associated angina: without angina Qualified Code(s): I25.10 - Atherosclerotic heart disease of [place] coronary artery without angina pectoris Category: Medical Code(s): I25.10 - Atherosclerotic heart disease of [place] coronary artery without angina pectoris (4) COPD (chronic obstructive pulmonary disease) Current visit: No Status: Chronic Qualifiers: COPD type: unspecified COPD Qualified Code(s): J44.9 - Chronic obstructive pulmonary disease, unspecified Category: Medical Code(s): J44.9 - Chronic obstructive pulmonary disease, unspecified (5) History of atrial fibrillation Current visit: No Status: Chronic Category: Medical Code(s): Z86.79 - Personal history of other diseases of the circulatory system (6) Neuropathy Current visit: No Status: Chronic Category: Medical Code(s): G62.9 - Polyneuropathy, unspecified (7) PAF (paroxysmal atrial fibrillation) Current visit: No Status: Chronic Category: Medical Code(s): I48.0 - Paroxysmal atrial fibrillation (8) Pacemaker Current visit: No Status: Chronic Category: Medical Code(s): Z95.0 - Presence of cardiac pacemaker (9) Pleural effusion Current visit: Yes Status: Acute Category: Medical Code(s): J90 - Pleural effusion, not elsewhere classified she is agreeable to left thoracentesis.
--- NOTE | 2019-02-12 16:15 | Operative Note ---
Date of procedure: 02/12/19 Pre-op Diagnosis:: Large left pleural effusion Post-op Diagnosis:: Same Procedure performed:: Left thoracentesis Surgeon:: Elmer Fagan MD Anesthesia: local Estimated blood loss (mL): 1 Operative findings:: 1500 mL of serous (slightly serosanguineous) fluid obtained Operative note:: After informed consent was obtained the patient was placed in a seated position. Her left back was prepped and draped in a sterile fashion after appropriate auscultation for "marking". 1% lidocaine was utilized to infiltrate the ins ertion site. A small stab incision was made with a #11 scalpel. The thoracentesis catheter was secured in position. 1500 mL of serous (slightly serosanguineous) fluid was removed. The catheter was carefully removed and a Tegaderm was placed in position. The patient tolerated the procedure without difficulty. Condition: stable Disposition: no change Specimens:: Fluid obtained for "thoracentesis panel" Complications:: No immediate. Chest x-ray is pending.
[2019-02-12 16:50] LABS: RBC,Body Fluid < 10 cells/uL (< 10 X 10^3); TNC,Body Fluid 470 cells/uL (< 1000)
[2019-02-12 18:55] LABS: Appearance,Body Fld. Slightly hazy
[2019-02-12 18:56] LABS: Mononuclear WBCs,Body Fluid 97 %; Polynuclear WBC,Body Fluid 3 %
--- NOTE | 2019-02-13 08:55 | Progress Note ---
Internal Medicine - PN: Subj *Date: 02/13/19 *Time: 08:50 Interval history: The patient underwent thoracentesis yesterday by Dr. Edwin Fagan. She feels that she is breathing better today. She sits comfortably with her nasal O2 in place. She still has a rattling cough but states that it is not very productive at all. She received a dose of Lasix for shortness of breath during the night but I have not been convinced that she has much in the way of congestive heart failure at this presentation. She has had very little leg edema. It is encouraging that her oxygen saturation this morning is 96%. Exam Vital signs and Labs for Last 24 Hours: Temp Pulse Resp BP Pulse Ox 97.9 F 83 17 120/57 L 96 02/13/19 07:25 02/13/19 07:25 02/13/19 07:25 02/13/19 07:25 02/13/19 07:25 Laboratory Results - last 24 hr 02/12/19 08:03: WBC 7.2, RBC 3.30 L, Hgb 9.2 L, Hct 32.7 L, MCV 99.0, MCH 27.8, MCHC 28.1 L, RDW 15.3, Plt Count 346, MPV 8.4, Neut % (Auto) 80.4 H, Lymph % (Auto) 12.5, [place] % (Auto) 4.4, Eos % (Auto) 2.2, Baso % (Auto) 0.5, Neut # (Auto) 5.8, Lymph # (Auto) 0.9, [place] # (Auto) 0.3, Eos # (Auto) 0.2, Baso # (Auto) 0.0 02/12/19 08:03: Calcium 7.3 L D 02/12/19 08:03: Lactate Dehydrogenase 260 H 02/12/19 09:40: Stl Aeromonas (PCR) Not detected, Stl C. cayetanensis PCR Not detected, Stool Rotavirus (PCR) Not detected, Stl Adenov F 40/41 PCR Not detected, Stool Astrovirus (PCR) Not detected, Stool Campylobacter PCR Not detected, Stl C.difficile Tox PCR Not detected, Stool Cryptosporidium PCR Not detected, Stl E.coli Shiga Tox PCR Not detected, Stool E coli O157 PCR Not detected, Stl Enterotoxigenic E PCR Not detected, Stool EPEC (PCR) Not detected, Stool EAEC (PCR) Not detected, Stl E. histolytica PCR Not detected, Stool Giardia Lamblia PCR Not detected, Stool Salmonella PCR Not detected, Stool Sapovirus (PCR) Not detected, Stl P. shigelloides PCR Not detected, Stl Shigella/EIEC PCR Not detected, St Y.enterocolitica PCR Not detected, Stool Vibrio (PCR) Not detected, Stl Vibrio cholerae PCR Not detected, Stl Norovirus GI/GII PCR Not detected 02/12/19 16:00: Fluid Source Thoracentesis fluid, Fluid Volume 16, Fluid Appearance Slightly hazy, Fluid RBC (Auto) < 10, Fld Tot Nucleated Cell 470, Fld Polynuclear WBCs % 3, Fld Mononuclear WBCs % 97 02/12/19 19:59: POC Glucose 124 H 02/13/19 06:07: POC Glucose 106 I & O for Last 24 hours: Intake & Output 02/10/19 02/11/19 02/12/19 02/13/19 11:59 11:59 11:59 11:59 Intake Total 1540 / 1540 2297 / 2297 2188 / 2188 1910 / 1910 Output Total 750 / 750 500 / 500 300 / 300 900 / 900 Balance 790 / 790 1797 / 1797 1888 / 1888 1010 / 1010 Weight 136 lb 8 oz 140 lb 5 oz 142 lb 1 oz 139 lb 2 oz Microbiology Reports for the Last 24 Hours: Microbiology 02/12/19 16:00 Thoracic Fluid Gram Stain - Final - Constitutional no acute distress - *Routine HEENT Exam Head: Present: normocephalic Eye: Present: PERRL ENT: Present: mucous membranes moist - *Routine Respiratory Exam Present: decreased breath sounds (Left base. Perhaps a bit better movement.), rales (Right base). Absent: respiratory distress - *Routine Cardiovascular Exam Present: RRR - *Routine Abdominal Exam Present: soft. Absent: tenderness - *Routine Extremities Exam Absent: edema - *Routine Neurological Exam Present: alert, oriented X3 Assessment and Plan (1) Pneumonia Current visit: Yes Status: Acute Category: Medical Code(s): J18.9 - Pneumonia, unspecified organism (2) Chest pain Current visit: No Status: Acute Qualifiers: Qualified Code(s): R07.2 - Precordial pain Category: Medical Code(s): R07.9 - Chest pain, unspecified (3) CAD (coronary artery disease) Current visit: No Status: Chronic Qualifiers: Coronary Disease-Associated Artery/Lesion type: [place] artery [place] vs. transplanted heart: [place] heart Associated angina: without angina Qualified Code(s): I25.10 - Atherosclerotic heart disease of [place] coronary artery without angina pectoris Category: Medical Code(s): I25.10 - Atherosclerotic heart disease of [place] coronary artery without angina pectoris (4) COPD (chronic obstructive pulmonary disease) Current visit: No Status: Chronic Qualifiers: COPD type: unspecified COPD Qualified Code(s): J44.9 - Chronic obstructive pulmonary disease, unspecified Category: Medical Code(s): J44.9 - Chronic obstructive pulmonary disease, unspecified (5) History of atrial fibrillation Current visit: No Status: Chronic Category: Medical Code(s): Z86.79 - Personal history of other diseases of the circulatory system (6) Neuropathy Current visit: No Status: Chronic Category: Medical Code(s): G62.9 - Polyneuropathy, unspecified (7) PAF (paroxysmal atrial fibrillation) Current visit: No Status: Chronic Category: Medical Code(s): I48.0 - Paroxysmal atrial fibrillation (8) Pacemaker Current visit: No Status: Chronic Category: Medical Code(s): Z95.0 - Presence of cardiac pacemaker (9) Pleural effusion Current visit: Yes Status: Acute Category: Medical Code(s): J90 - Pleural effusion, not elsewhere classified
--- NOTE | 2019-02-13 11:14 | Progress Note ---
Internal Medicine - PN: Subj *Date: 02/13/19 *Time: 11:14 Exam Vital signs and Labs for Last 24 Hours: Temp Pulse Resp BP Pulse Ox 97.9 F 70 17 120/57 L 96 02/13/19 07:25 02/13/19 08:00 02/13/19 07:25 02/13/19 07:25 02/13/19 07:25 Laboratory Results - last 24 hr 02/12/19 08:03: Calcium 7.3 L D 02/12/19 08:03: Lactate Dehydrogenase 260 H 02/12/19 09:40: Stl Aeromonas (PCR) Not detected, Stl C. cayetanensis PCR Not detected, Stool Rotavirus (PCR) Not detected, Stl Adenov F 40/41 PCR Not detected, Stool Astrovirus (PCR) Not detected, Stool Campylobacter PCR Not detected, Stl C.difficile Tox PCR Not detected, Stool Cryptosporidium PCR Not detected, Stl E.coli Shiga Tox PCR Not detected, Stool E coli O157 PCR Not detected, Stl Enterotoxigenic E PCR Not detected, Stool EPEC (PCR) Not detected, Stool EAEC (PCR) Not detected, Stl E. histolytica PCR Not detected, Stool Giardia Lamblia PCR Not detected, Stool Salmonella PCR Not detected, Stool Sapovirus (PCR) Not detected, Stl P. shigelloides PCR Not detected, Stl Shigella /EIEC PCR Not detected, St Y.enterocolitica PCR Not detected, Stool Vibrio (PCR) Not detected, Stl Vibrio cholerae PCR Not detected, Stl Norovirus GI/GII PCR Not detected 02/12/19 16:00: Fluid Source Thoracentesis fluid, Fluid Volume 16, Fluid Appearance Slightly hazy, Fluid RBC (Auto) < 10, Fld Tot Nucleated Cell 470, Fld Polynuclear WBCs % 3, Fld Mononuclear WBCs % 97 02/12/19 19:59: POC Glucose 124 H 02/13/19 06:07: POC Glucose 106 02/13/19 10:27: Hemoglobin A1c 5.8 02/13/19 10:48: POC Glucose 110 I & O for Last 24 hours: Intake & Output 02/10/19 02/11/19 02/12/19 02/13/19 23:59 23:59 23:59 23:59 Intake Total 2622 / 2622 1725 / 1725 1828 / 2978 1790 / 1790 Output Total 950 / 950 400 / 400 200 / 200 1150 / 1150 Balance 1672 / 1672 1325 / 1325 1628 / 2778 640 / 640 Weight 61.915 kg 63.645 kg 64.438 kg 63.106 kg Microbiology Reports for the Last 24 Hours: Microbiology 02/12/19 16:00 Thoracic Fluid Gram Stain - Final Assessment and Plan (1) Pneumonia Current visit: Yes Status: Acute Category: Medical Code(s): J18.9 - Pne umonia, unspecified organism (2) Chest pain Current visit: No Status: Acute Qualifiers: Qualified Code(s): R07.2 - Precordial pain Category: Medical Code(s): R07.9 - Chest pain, unspecified (3) CAD (coronary artery disease) Current visit: No Status: Chronic Qualifiers: Coronary Disease-Associated Artery/Lesion type: [place] artery [place] vs. transplanted heart: [place] heart Associated angina: without angina Qualified Code(s): I25.10 - Atherosclerotic heart disease of [place] coronary artery without angina pectoris Category: Medical Code(s): I25.10 - Atherosclerotic heart disease of [place] coronary artery without angina pectoris (4) COPD (chronic obstructive pulmonary disease) Current visit: No Status: Chronic Qualifiers: COPD type: unspecified COPD Qualified Code(s): J44.9 - Chronic obstructive pulmonary disease, unspecified Category: Medical Code(s): J44.9 - Chronic obstructive pulmonary disease, unspecified (5) History of atrial fibrillation Current visit: No Status: Chronic Category: Medical Code(s): Z86.79 - Personal history of other diseases of the circulatory system (6) Neuropathy Current visit: No Status: Chronic Category: Medical Code(s): G62.9 - Polyneuropathy, unspecified (7) PAF (paroxysmal atrial fibrillation) Current visit: No Status: Chronic Category: Medical Code(s): I48.0 - Paroxysmal atrial fibrillation (8) Pacemaker Current visit: No Status: Chronic Category: Medical Code(s): Z95.0 - Presence of cardiac pacemaker (9) Pleural effusion Current visit: Yes Status: Acute Category: Medical Code(s): J90 - Pleural effusion, not elsewhere classified The patient's infection will respond to the chosen ABx?: Yes Is the patient receiving the right drug, dose, and route?: Yes Could a more targeted ABx be ordered?: No
[2019-02-14 06:43] LABS: Basophils % 0.5 % (0.1-2.0); Eosinophils # 0.2 K/mm3 (0.0-0.4); Eosinophils % 3.1 % (0.1-12.0); Hematocrit 32.8 % (37.0-47.0); Hemoglobin 9.6 g/dL (12.2-16.2); Lymphocytes # 1.1 K/mm3 (0.7-4.5); Lymphocytes % 14.8 % (10-50); Mean Corpuscular HGB Conc 29.2 g/dL (31.8-35.4); Mean Corpuscular Volume 94.7 fl (81-99); Mean Platelet Volume 8.7 fl (7.4-10.4); Monocytes # 0.3 K/mm3 (0.1-1.0); Monocytes % 4.2 % (1.7-9.3); Neutrophils # 5.6 K/mm3 (1.8-7.8); Neutrophils % 77.4 % (37.0-80.0); Platelet Count 315 K/mm3 (142-424); Red Blood Count 3.46 M/mm3 (4.20-5.40); Red Cell Distribution Width 14.7 % (11.5-17.5); White Blood Count 7.2 K/mm3 (4.8-10.8)
[2019-02-14 06:55] LABS: Anion Gap 14.9 mEq/L (5-15); Calcium 7.1 mg/dL (8.5-10.1)
--- NOTE | 2019-02-14 09:12 | Progress Note ---
Internal Medicine - PN: Subj *Date: 02/14/19 *Time: 09:11 Interval history: She seems to be a bit better. She seems more comfortable. Air movement seems to be better on the left. She complains of her hands being puffy. I will switch her IV fluids. Chest x-ray in the morning. Exam Vital signs and Labs for Last 24 Hours: Temp Pulse Resp BP Pulse Ox 97.7 F 77 17 125/60 97 02/14/19 07:34 02/14/19 07:34 02/14/19 07:34 02/14/19 07:34 02/14/19 07:34 Laboratory Results - last 24 hr 02/13/19 10:27: Hemoglobin A1c 5.8 02/13/19 10:48: POC Glucose 110 02/13/19 16:49: POC Glucose 83 02/13/19 20:50: POC Glucose 104 02/14/19 05:35: POC Glucose 82 02/14/19 06:18: WBC 7.2, RBC 3.46 L, Hgb 9.6 L, Hct 32.8 L, MCV 94.7, MCH 27.7, MCHC 29.2 L, RDW 14.7, Plt Count 315, MPV 8.7, Neut % (Auto) 77.4, Lymph % (Auto) 14.8, [place] % (Auto) 4.2, Eos % (Auto) 3.1, Baso % (Auto) 0.5, Neut # (Auto) 5.6, Lymph # (Auto) 1.1, [place] # (Auto) 0.3, Eos # (Auto) 0.2, Baso # (Auto) 0.0 02/14/19 06:18: Sodium 148 H, Potassium 3.9, Chloride 115 H, Carbon Dioxide 22, Anion Gap 14.9, BUN 13, Creatinine 0.56, Estimated Creat Clear 39, Estimated GFR 102, Est GFR ( Amer) 124, Glucose 77, Calcium 7.1 L I & O for Last 24 hours: Intake & Output 02/11/19 02/12/19 02/13/19 02/14/19 11:59 11:59 11:59 11:59 Intake Total 2297 / 2297 2338 / 2338 1910 / 1910 2676 / 2676 Output Total 500 / 500 300 / 300 1400 / 1400 550 / 550 Balance 1797 / 1797 2038 / 2038 510 / 510 2126 / 2126 Weight 140 lb 5 oz 142 lb 1 oz 139 lb 2 oz 137 lb 1 oz Microbiology Reports for the Last 24 Hours: Microbiology 02/12/19 16:00 Thoracic Fluid Gram Stain - Final 02/12/19 16:00 Thoracic Fluid Body Fluid Culture - Preliminary NO GROWTH AFTER 24 HOURS - Constitutional no acute distress - *Routine Respiratory Exam Absent: respiratory distress - *Routine Cardiovascular Exam Present: RRR - *Routine Abdominal Exam Present: soft. Absent: tenderness - *Routine Extremities Exam Absent: edema (No leg edema but the hands do appear puffy.) - *Routine Neurological Exam Present: alert, oriented X3 Assessment and Plan (1) Pneumonia Current visit: Yes Status: Acute Category: Medical Code(s): J18.9 - Pneumonia, unspecified organism (2) Chest pain Current visit: No Status: Acute Qualifiers: Qualified Code(s): R07.2 - Precordial pain Category: Medical Code(s): R07.9 - Chest pain, unspecified (3) CAD (coronary artery disease) Current visit: No Status: Chronic Qualifiers: Coronary Disease-Associated Artery/Lesion type: [place] artery [place] vs. transplanted heart: [place] heart Associated angina: without angina Qualified Code(s): I25.10 - Atherosclerotic heart disease of [place] coronary artery without angina pectoris Category: Medical Code(s): I25.10 - Atherosclerotic heart disease of [place] coronary artery without angina pectoris (4) COPD (chronic obstructive pulmonary disease) Current visit: No Status: Chronic Qualifiers: COPD type: unspecified COPD Qualified Code(s): J44.9 - Chronic obstructive pulmonary disease, unspecified Category: Medical Code(s): J44.9 - Chronic obstructive pulmonary disease, unspecified (5) History of atrial fibrillation Current visit: No Status: Chronic Category: Medical Code(s): Z86.79 - Personal history of other diseases of the circulatory system (6) Neuropathy Current visit: No Status: Chronic Category: Medical Code(s): G62.9 - Polyneuropathy, unspecified (7) PAF (paroxysmal atrial fibrillation) Current visit: No Status: Chronic Category: Medical Code(s): I48.0 - Paroxysmal atrial fibrillation (8) Pacemaker Current visit: No Status: Chronic Category: Medical Code(s): Z95.0 - Presence of cardiac pacemaker (9) Pleural effusion Current visit: Yes Status: Acute Category: Medical Code(s): J90 - Pleural effusion, not elsewhere classified - Assessment and plan all Dx Assessment and Plan for all problems:: Switch IV fluids. Chest x-ray in the morning.
--- NOTE | 2019-02-15 08:17 | Progress Note ---
Internal Medicine - PN: Subj *Date: 02/15/19 *Time: 08:14 Interval history: Patient states she may be just a little bit better. She did sleep last night. Shortness of breath with any exertion. Is up to bedside commode and sits in chair. Voiding QS. Has a frequent nonproductive cough. Is eating poorly. Food does not taste good. Bowels have moved a little. Exam Vital signs and Labs for Last 24 Hours: Temp Pulse Resp BP Pulse Ox 97.7 F 73 20 128/105 H 92 L 02/15/19 07:54 02/15/19 07:54 02/15/19 07:54 02/15/19 07:54 02/15/19 07:54 Laboratory Results - last 24 hr 02/14/19 11:00: POC Glucose 93 02/14/19 16:07: POC Glucose 91 02/14/19 20:41: POC Glucose 104 02/15/19 06:12: POC Glucose 76 I & O for Last 24 hours: Intake & Output 02/12/19 02/13/19 02/14/19 02/15/19 11:59 11:59 11:59 11:59 Intake Total 2338 / 2338 1910 / 1910 2676 / 2676 2548 / 2548 Output Total 300 / 300 1400 / 1400 550 / 550 1500 / 1500 Balance 8 / 2038 510 / 510 2126 / 2126 1048 / 1048 Weight 142 lb 1 oz 139 lb 2 oz 137 lb 1 oz 143 lb 1 oz Microbiology Reports for the Last 24 Hours: Microbiology 02/12/19 16:00 Thoracic Fluid Gram Stain - Final 02/12/19 16:00 Thoracic Fluid Body Fluid Culture - Preliminary NO GROWTH AFTER 48 HOURS 02/09/19 14:35 Blood Blood Culture - Final NO GROWTH AFTER 5 DAYS 02/09/19 14:10 Blood Blood Culture - Final NO GROWTH AFTER 5 DAYS - Constitutional no acute distress Comments: Sitting up in recliner watching country music on TV. Dyspneic with talking - *Routine Respiratory Exam Comments: Diminished breath sounds on the left. Crackles on the right. Congested cough and audible crackles on inspiration - *Routine Cardiovascular Exam Present: RRR, murmur - *Routine Abdominal Exam Present: soft, normoactive bowel sounds. Absent: tenderness - *Routine Extremities Exam Absent: edema - *Routine Neurological Exam Present: alert, oriented X3 Assessment and Plan (1) Pneumonia Current visit: Yes Status: Acute Category: Medical Code(s): J18.9 - Pn [place], unspecified organism (2) Chest pain Current visit: No Status: Acute Qualifiers: Qualified Code(s): R07.2 - Precordial pain Category: Medical Code(s): R07.9 - Chest pain, unspecified (3) CAD (coronary artery disease) Current visit: No Status: Chronic Qualifiers: Coronary Disease-Associated Artery/Lesion type: [place] artery [place] vs. transplanted heart: [place] heart Associated angina: without angina Qualified Code(s): I25.10 - Atherosclerotic heart disease of [place] coronary artery without angina pectoris Category: Medical Code(s): I25.10 - Atherosclerotic heart disease of [place] coronary artery without angina pectoris (4) COPD (chronic obstructive pulmonary disease) Current visit: No Status: Chronic Qualifiers: COPD type: unspecified COPD Qualified Code(s): J44.9 - Chronic obstructive pulmonary disease, unspecified Category: Medical Code(s): J44.9 - Chronic obstructive pulmonary disease, unspecified (5) History of atrial fibrillation Current visit: No Status: Chronic Category: Medical Code(s): Z86.79 - Personal history of other diseases of the circulatory system (6) Neuropathy Current visit: No Status: Chronic Category: Medical Code(s): G62.9 - Polyneuropathy, unspecified (7) PAF (paroxysmal atrial fibrillation) Current visit: No Status: Chronic Category: Medical Code(s): I48.0 - Paroxysmal atrial fibrillation (8) Pacemaker Current visit: No Status: Chronic Category: Medical Code(s): Z95.0 - Presence of cardiac pacemaker (9) Pleural effusion Current visit: Yes Status: Acute Category: Medical Code(s): J90 - Pleural effusion, not elsewhere classified - Assessment and plan all Dx Assessment and Plan for all problems:: Chest x-ray to be done this a.m. Await results and may need diuretics. Continue with duo nebs and antibiotics
--- NOTE | 2019-02-16 08:33 | Progress Note ---
Internal Medicine - PN: Subj *Date: 02/16/19 *Time: 08:30 Interval history: Patient states she may feel a little bit better. She continues to get very short of breath with any activity. She does denies chest pain. She continues with a congested nonproductive cough. She eats poorly. She is voiding QS. She did sleep some. Exam Vital signs and Labs for Last 24 Hours: Temp Pulse Resp BP Pulse Ox 97.7 F 74 20 114/58 L 99 02/16/19 08:00 02/16/19 08:00 02/16/19 08:00 02/16/19 08:00 02/16/19 08:00 Laboratory Results - last 24 hr 02/15/19 11:23: POC Glucose 111 H 02/15/19 16:20: POC Glucose 96 02/15/19 21:26: POC Glucose 103 02/16/19 06:16: POC Glucose 78 I & O for Last 24 hours: Intake & Output 02/13/19 02/14/19 02/15/19 02/16/19 11:59 11:59 11:59 11:59 Intake Total 1910 / 1910 2826 / 2826 2548 / 2548 1080 / 1080 Output Total 1400 / 1400 550 / 550 1500 / 1500 550 / 550 Balance 510 / 510 2276 / 2276 1048 / 1048 530 / 530 Weight 139 lb 2 oz 137 lb 1 oz 143 lb 1 oz 145 lb 5 oz Microbiology Reports for the Last 24 Hours: Microbiology 02/12/19 16:00 Thoracic Fluid Gram Stain - Final 02/12/19 16:00 Thoracic Fluid Body Fluid Culture - Preliminary Radiology Reports for the Last 24 Hours: 02/15/2019 repeat chest x-ray IMPRESSION: Moderate-sized left pleural effusion slightly increased in size. - Constitutional no acute distress Comments: Sitting in recliner at bedside eating her breakfast. She appears comfortable. - *Routine Respiratory Exam Comments: Crackles on the right which mostly clear with cough. Decreased breath sounds in the left base. - *Routine Cardiovascular Exam Present: RRR - *Routine Abdominal Exam Present: soft, normoactive bowel sounds. Absent: tenderness - *Routine Extremities Exam Present: edema (Trace) - *Routine Neurological Exam Present: alert, oriented X3 Assessment and Plan (1) Pneumonia Current visit: Yes Status: Acute Category: Medical Code(s): J18.9 - Pneumonia, unspecified organism (2) Chest pain Current visit: No Status: Acute Qualifiers: Qualified Code(s): R07.2 - Precordial pain Category: Medical Code(s): R07.9 - Chest pain, unspecified (3) CAD (coronary artery disease) Current visit: No Status: Chronic Qualifiers: Coronary Disease-Associated Artery/Lesion type: [place] artery [place] vs. transplanted heart: [place] heart Associated angina: without angina Qualified Code(s): I25.10 - Atherosclerotic heart disease of [place] coronary artery without angina pectoris Category: Medical Code(s): I25.10 - Atherosclerotic heart disease of [place] coronary artery without angina pectoris (4) COPD (chronic obstructive pulmonary disease) Current visit: No Status: Chronic Qualifiers: COPD type: unspecified COPD Qualified Code(s): J44.9 - Chronic obstructive pulmonary disease, unspecified Category: Medical Code(s): J44.9 - Chronic obstructive pulmonary disease, unspecified (5) History of atrial fibrillation Current visit: No Status: Chronic Category: Medical Code(s): Z86.79 - Personal history of other diseases of the circulatory system (6) Neuropathy Current visit: No Status: Chronic Category: Medical Code(s): G62.9 - Polyneuropathy, unspecified (7) PAF (paroxysmal atrial fibrillation) Current visit: No Status: Chronic Category: Medical Code(s): I48.0 - Paroxysmal atrial fibrillation (8) Pacemaker Current visit: No Status: Chronic Category: Medical Code(s): Z95.0 - Presence of cardiac pacemaker (9) Pleural effusion Current visit: Yes Status: Acute Category: Medical Code(s): J90 - Pleural effusion, not elsewhere classified - Assessment and plan all Dx Assessment and Plan for all problems:: Will repeat chest x-ray this morning. Encouraged use of incentive spirometer
--- NOTE | 2019-02-17 08:09 | Progress Note ---
Internal Medicine - PN: Subj *Date: 02/17/19 *Time: 08:08 Interval history: Patient states she is feeling slightly better today. She still gets short of breath with any exertion. She has been up sitting in the chair this morning and denies any pain. She did eat some breakfast. Exam Vital signs and Labs for Last 24 Hours: Temp Pulse Resp BP Pulse Ox 98.2 F 98 H 21 124/54 L 94 L 02/17/19 04:00 02/17/19 06:12 02/17/19 04:00 02/17/19 04:00 02/17/19 06:12 Laboratory Results - last 24 hr 02/12/19 16:00: Fluid Glucose 138, Fluid Total Protein 3.4, Fluid Albumin 2.0, Fluid LDH 291 02/16/19 11:45: POC Glucose 89 02/16/19 16:40: POC Glucose 91 02/16/19 20:29: POC Glucose 121 H 02/17/19 06:03: POC Glucose 84 I & O for Last 24 hours: Intake & Output 02/14/19 02/15/19 02/16/19 02/17/19 11:59 11:59 11:59 11:59 Intake Total 2826 / 2826 2548 / 2548 1080 / 1080 680 / 680 Output Total 550 / 550 1500 / 1500 550 / 550 925 / 925 Balance 2276 / 2276 1048 / 1048 530 / 530 -245 / -245 Weight 137 lb 1 oz 143 lb 1 oz 145 lb 5 oz 146 lb 4 oz Radiology Reports for the Last 24 Hours: CXR - Overall no significant change in the moderate left-sided effusion small right effusion with bilateral atelectasis. - Constitutional no acute distress - *Routine Respiratory Exam Present: rales (bibasilar) - *Routine Cardiovascular Exam Present: RRR - *Routine Abdominal Exam Present: soft, normoactive bowel sounds. Absent: tenderness - *Routine Extremities Exam Absent: cyanosis, clubbing, edema - *Routine Skin Exam Present: warm. Absent: rash - *Routine Neurological Exam Present: alert, oriented X3 Assessment and Plan (1) Pneumonia Current visit: Yes Status: Acute Category: Medical Code(s): J18.9 - Pneu [place], unspecified organism (2) Chest pain Current visit: No Status: Acute Qualifiers: Qualified Code(s): R07.2 - Precordial pain Category: Medical Code(s): R07.9 - Chest pain, unspecified (3) CAD (coronary artery disease) Current visit: No Status: Chronic Qualifiers: Coronary Disease-Associated Artery/Lesion type: [place] artery [place] vs. transplanted heart: [place] heart Associated angina: without angina Qualified Code(s): I25.10 - Atherosclerotic heart disease of [place] coronary artery without angina pectoris Category: Medical Code(s): I25.10 - Atherosclerotic heart disease of [place] coronary artery without angina pectoris (4) COPD (chronic obstructive pulmonary disease) Current visit: No Status: Chronic Qualifiers: COPD type: unspecified COPD Qualified Code(s): J44.9 - Chronic obstructive pulmonary disease, unspecified Category: Medical Code(s): J44.9 - Chronic obstructive pulmonary disease, unspecified (5) History of atrial fibrillation Current visit: No Status: Chronic Category: Medical Code(s): Z86.79 - Personal history of other diseases of the circulatory system (6) Neuropathy Current visit: No Status: Chronic Category: Medical Code(s): G62.9 - Polyneuropathy, unspecified (7) PAF (paroxysmal atrial fibrillation) Current visit: No Status: Chronic Category: Medical Code(s): I48.0 - Paroxysmal atrial fibrillation (8) Pacemaker Current visit: No Status: Chronic Category: Medical Code(s): Z95.0 - Presence of cardiac pacemaker (9) Pleural effusion Current visit: Yes Status: Acute Category: Medical Code(s): J90 - Pleural effusion, not elsewhere classified - Assessment and plan all Dx Assessment and Plan for all problems:: We will continue antibiotics and will discuss further care with Dr. Morgan.
--- NOTE | 2019-02-17 14:57 | Electrocardiograph Report ---
APPROVED REPORT Exam: Resting ECG HR:114 bpm ECG Measurements Heart Rate 114 AXES QRSd 58 QRS -11 QT 310 T-29 QTc 427 <Conclusion> Atrial Fibrillation Low voltage QRS Poor R Wave Progression Abnormal ECG Electronically signed by : Jeremy Huff, 02/17/2019 14:57:15
--- NOTE | 2019-02-17 18:26 | Progress Note ---
Internal Medicine - PN: Subj *Date: 02/17/19 *Time: 18:22 Interval history: Around 1020 this morning according to the notes the patient underwent thoracentesis guided by ultrasound in the department radiology by Dr. Hansel Moseley. 1500 cc of fluid were tapped. Upon return to the floor the patient was found to be in atrial fibrillation and flutter. Her heart rate was by is 130. Blood pressure was running low, 80/40. See EKG. Cardiac consultation was obtained with Dr. Tabares ordered a bolus of Cardizem 10 mg. The patient converted to normal sinus rhythm and the pacemaker kicks in appropriately. Is also ordered but has not been necessary. Patient's blood pressure has improved to 112/70. She is in no distress. There is better air movement in the left side of the chest on auscultation. He has 1+ leg edema. Exam Vital signs and Labs for Last 24 Hours: Temp Pulse Resp BP Pulse Ox 97.7 F 86 18 107/52 L 92 L 02/17/19 16:00 02/17/19 17:30 02/17/19 17:30 02/17/19 17:30 02/17/19 17:30 Laboratory Results - last 24 hr 02/12/19 16:00: Fluid Glucose 138, Fluid Total Protein 3.4, Fluid Albumin 2.0, Fluid LDH 291 02/16/19 20:29: POC Glucose 121 H 02/17/19 06:03: POC Glucose 84 02/17/19 12:06: POC Glucose 93 02/17/19 16:47: POC Glucose 100 I & O for Last 24 hours: Intake & Output 02/15/19 02/16/19 02/17/19 02/18/19 11:59 11:59 11:59 11:59 Intake Total 2548 / 2548 1080 / 1080 920 / 920 629 / 629 Output Total 1500 / 1500 550 / 550 925 / 925 Balance 1048 / 1048 530 / 530 -5 / -5 629 / 629 Weight 143 lb 1 oz 145 lb 5 oz 146 lb 4 oz - Constitutional no acute distress - *Routine Respiratory Exam Comments: Improved air movement at the left base. She does still have rhonchi and there are rales. - *Routine Cardiovascular Exam Comments: Monitors normal sinus rhythm with pacemaker spikes. - *Routine Extremities Exam Present: edema (1+.) - *Routine Neurological Exam Present: alert, oriented X3 Assessment and Plan (1) Pneumonia Current visit: Yes Status: Acute Category: Medical Code(s): J18.9 - Pneumonia, unspecified organism (2) Chest pain Current visit: No Status: Acute Qualifiers: Qualified Code(s): R07.2 - Precordial pain Category: Medical Code(s): R07.9 - Chest pain, unspecified (3) CAD (coronary artery disease) Current visit: No Status: Chronic Qualifiers: Coronary Disease-Associated Artery/Lesion type: [place] artery [place] vs. transplanted heart: [place] heart Associated angina: without angina Qualified Code(s): I25.10 - Atherosclerotic heart disease of [place] coronary artery without angina pectoris Category: Medical Code(s): I25.10 - Atherosclerotic heart disease of [place] coronary artery without angina pectoris (4) COPD (chronic obstructive pulmonary disease) Current visit: No Status: Chronic Qualifiers: COPD type: unspecified COPD Qualified Code(s): J44.9 - Chronic obstructive pulmonary disease, unspecified Category: Medical Code(s): J44.9 - Chronic obstructive pulmonary disease, unspecified (5) History of atrial fibrillation Current visit: No Status: Chronic Category: Medical Code(s): Z86.79 - Personal history of other diseases of the circulatory system (6) Neuropathy Current visit: No Status: Chronic Category: Medical Code(s): G62.9 - Polyneuropathy, unspecified (7) PAF (paroxysmal atrial fibrillation) Current visit: No Status: Chronic Category: Medical Code(s): I48.0 - Paroxysmal atrial fibrillation (8) Pacemaker Current visit: No Status: Chronic Category: Medical Code(s): Z95.0 - Presence of cardiac pacemaker (9) Pleural effusion Current visit: Yes Status: Acute Category: Medical Code(s): J90 - Pleural effusion, not elsewhere classified - Assessment and plan all Dx Assessment and Plan for all problems:: Decrease IV fluids to 100 cc/hr. he is now being monitored in stepdown.
--- NOTE | 2019-02-18 10:51 | Cardiology Report ---
APPROVED REPORT EXAM: Comprehensive 2D, Doppler, and color-flow Echocardiogram Station Attendant: Kavita Phan RVT Ht: 5 ft 4 in Wt: 146lbs BSA: 1.71 BP: 124/54 mmHg Indications: Shortness of Breath, Atrial Fibrillation, Atrial Flutter, Hyperlipidemia, Hypertension,Pacer,CAD, GERD,Hypotension,Pneumonia, S/p thoracentesis this a.m. 2D Dimensions LVOT 1.36 cm (M/F) 1.5-2.5 M-Mode Dimensions RVDd 2.07 cm (0.9-2.6)LA Diam 4.10 cm (1.9-4.0) LVDd 3.72 cm (3.5-5.7)Ao Diam 2.70 cm (2.0-3.7) LVDs 2.58 cm (3.5-5.7)AV Cusp 1.80 cm (1.5-2.6) IVSd 1.82 cm (0.6-1.1)PWd 0.72 cm (0.6-1.1) EF (Teich) 59.10% FS 30.60% EDV (Teich) 58.90 mLESV (Teich) 24.10 mL Left Ventricle Left atrium is mildly enlarged, left ventricle is normal size, moderate concentric left ventricular hypertrophy, hyperdynamic left ventricular systolic function, visually estimated ejection fraction over 65% with no regional wall motion abnormality, endocardial surfaces are poorly visualized. Diastolic parameters are inconclusive. Right Ventricle Right atrium and right ventricular normal size and contractility. Aortic Valve Aortic valve is thickened and calcified leaflet continue to display mobility. There is no aortic stenosis aortic insufficiency. Mitral Valve Mitral valve leaflets are not visualized, there is no mitral stenosis, there is mild mitral regurgitation. Tricuspid Valve Tricuspid valve is grossly normal, there is mild tricuspid regurgitation, tricuspid regurgitation jet velocity is inadequate for calculation of the right ventricular systolic pressure. Pulmonic Valve Pulmonic valve is poorly visualized. Great Vessels Aortic root is normal size. Pericardium No significant pericardial effusion noted. Conclusion 1. Technically difficult study because of the patient fact in poor acoustic windows. Endocardial surfaces are poorly visualized. 2. Normal left ventricular size, moderate concentric left ventricular hypertrophy, hyperdynamic left ventricular systolic function, visually estimated ejection fraction over 65% with no regional wall motion abnormality. Presence of dynamic LVOT obstruction cannot be excluded based on this study. Diastolic parameters are inconclusive. 3. Thickened and calcified aortic valve without Doppler evidence of aortic stenosis aortic insufficiency. 4. Mild mitral and tricuspid regurgitation. 5. No significant pericardial effusion noted. Electronically signed by : Wesley Agustin, 02/18/2019 10:50:39
--- NOTE | 2019-02-18 11:31 | Progress Note ---
Internal Medicine - PN: Subj *Date: 02/18/19 *Time: 11:28 Interval history: She states that she feels better this morning. She does seem a little bit tachypneic however. There is better air movement in the left chest, but with bilateral rhonchi noted. She seems to have more leg edema at 2+ bilaterally. Her weight has come up to 146. She is still receiving at 100 cc an hour of IV fluids. Saline lock will be placed instead. 20 mg of furosemide will be given this morning. Exam Vital signs and Labs for Last 24 Hours: Temp Pulse Resp BP Pulse Ox 97.3 F L 74 20 124/95 H 92 L 02/18/19 07:32 02/18/19 11:14 02/18/19 11:00 02/18/19 11:00 02/18/19 11:00 Laboratory Results - last 24 hr 02/17/19 12:06: POC Glucose 93 02/17/19 16:47: POC Glucose 100 02/17/19 19:59: POC Glucose 128 H 02/17/19 23:47: POC Glucose 82 02/18/19 03:31: POC Glucose 72 02/18/19 05:58: POC Glucose 82 02/18/19 11:01: POC Glucose 72 I & O for Last 24 hours: Intake & Output 02/15/19 02/16/19 02/17/19 02/18/19 11:59 11:59 11:59 11:59 Intake Total 2548 / 2548 1080 / 1080 920 / 920 1938 / 1938 Output Total 1500 / 1500 550 / 550 925 / 925 100 / 100 Balance 1048 / 1048 530 / 530 -5 / -5 1838 / 1838 Weight 143 lb 1 oz 145 lb 5 oz 146 lb 4 oz 146 lb 6 oz Microbiology Reports for the Last 24 Hours: Microbiology 02/12/19 16:00 Thoracic Fluid Gram Stain - Final 02/12/19 16:00 Thoracic Fluid Body Fluid Culture - Final NO GROWTH AFTER 5 DAYS - Constitutional no acute distress - *Routine HEENT Exam ENT: Present: mucous membranes dry - Routine Chest/Breast/Axilla Exam Chest wall: Absent: tenderness - *Routine Respiratory Exam Present: decreased breath sounds (But improved on the left.), rhonchi - *Routine Cardiovascular Exam Present: RRR (Monitor sinus rhythm with paced beats interspersed.) - *Routine Abdominal Exam Present: soft. Absent: tenderness - *Routine Extremities Exam Present: edema (2+) - *Routine Neurological Exam Present: alert, oriented X3 Assessment and Plan (1) Pneumonia Current visit: Yes Status: Acute Category: Medical Code(s): J18.9 - Pneumonia, unspecified organism (2) Chest pain Current visit: No Status: Acute Qualifiers: Qualified Code(s): R07.2 - Precordial pain Category: Medical Code(s): R07.9 - Chest pain, unspecified (3) Pleural effusion Current visit: Yes Status: Acute Category: Medical Code(s): J90 - Pleural effusion, not elsewhere classified (4) CAD (coronary artery disease) Current visit: No Status: Chronic Qualifiers: Coronary Disease-Associated Artery/Lesion type: [place] artery [place] vs. transplanted heart: [place] heart Associated angina: without angina Qualified Code(s): I25.10 - Atherosclerotic heart disease of [place] coronary artery without angina pectoris Category: Medical Code(s): I25.10 - Atherosclerotic heart disease of [place] coronary artery without angina pectoris (5) COPD (chronic obstructive pulmonary disease) Current visit: No Status: Chronic Qualifiers: COPD type: unspecified COPD Qualified Code(s): J44.9 - Chronic obstructive pulmonary disease, unspecified Category: Medical Code(s): J44.9 - Chronic obstructive pulmonary disease, unspecified (6) History of atrial fibrillation Current visit: No Status: Chronic Category: Medical Code(s): Z86.79 - Personal history of other diseases of the circulatory system (7) Neuropathy Current visit: No Status: Chronic Category: Medical Code(s): G62.9 - Polyneuropathy, unspecified (8) PAF (paroxysmal atrial fibrillation) Current visit: No Status: Chronic Category: Medical Code(s): I48.0 - Paroxysmal atrial fibrillation (9) Pacemaker Current visit: No Status: Chronic Category: Medical Code(s): Z95.0 - Presence of cardiac pacemaker
[2019-02-18 12:24] LABS: Albumin Level 1.7 gm/dL (3.4-5.0); Albumin/Globulin Ratio 0.5 (1.1-1.8); Anion Gap 12.1 mEq/L (5-15); Bilirubin,Total 0.2 mg/dL (0.2-1.0); Globulin 3.7 gm/dl (1.3-3.2); Total Protein,Serum 5.4 gm/dL (6.4-8.2)
[2019-02-18 14:20] LABS: Basophils # 0.1 K/mm3 (0-0.2); Basophils % 0.9 % (0.1-2.0); Eosinophils # 0.2 K/mm3 (0.0-0.4); Eosinophils % 2.1 % (0.1-12.0); Hematocrit 34.8 % (37.0-47.0); Lymphocytes % 13.4 % (10-50); Mean Corpuscular HGB Conc 28.7 g/dL (31.8-35.4); Mean Corpuscular Volume 94.4 fl (81-99); Mean Platelet Volume 8.8 fl (7.4-10.4); Monocytes # 0.3 K/mm3 (0.1-1.0); Monocytes % 3.6 % (1.7-9.3); Neutrophils # 5.7 K/mm3 (1.8-7.8); Neutrophils % 80.1 % (37.0-80.0); Platelet Count 323 K/mm3 (142-424); Red Blood Count 3.69 M/mm3 (4.20-5.40); Red Cell Distribution Width 14.7 % (11.5-17.5); White Blood Count 7.1 K/mm3 (4.8-10.8)
--- NOTE | 2019-02-19 08:34 | Progress Note ---
Internal Medicine - PN: Subj *Date: 02/19/19 *Time: 08:00 Interval history: Pt is sitting up in the chair watching tv. She states she is feeling well other than continued SOBOE and non-productive cough. She rested well overnight and her bowels have moved this morning. Exam Vital signs and Labs for Last 24 Hours: Temp Pulse Resp BP Pulse Ox 97.6 F 77 20 113/45 L 97 02/19/19 08:00 02/19/19 08:00 02/19/19 08:00 02/19/19 08:00 02/19/19 08:00 Laboratory Results - last 24 hr 02/18/19 05:58: POC Glucose 82 02/18/19 11:01: POC Glucose 72 02/18/19 12:05: Sodium 146 H, Potassium 3.1 L, Chloride 109 H, Carbon Dioxide 28, Anion Gap 12.1, BUN 17, Creatinine 0.68, Estimated Creat Clear 42, Estimated GFR 82, Est GFR ( Amer) 99, Glucose 101, Calcium 7.0 L, Total Bilirubin 0.2, AST 22, ALT 10 L, Alkaline Phosphatase 51, Total Protein 5.4 L, Albumin 1.7 L, Globulin 3.7 H, Albumin/Globulin Ratio 0.5 L 02/18/19 12:05: WBC 7.1, RBC 3.69 L, Hgb 10.0 L, Hct 34.8 L, MCV 94.4, MCH 27.1, MCHC 28.7 L, RDW 14.7, Plt Count 323, MPV 8.8, Neut % (Auto) 80.1 H, Lymph % (Auto) 13.4, [place] % (Auto) 3.6, Eos % (Auto) 2.1, Baso % (Auto) 0.9, Neut # (Auto) 5.7, Lymph # (Auto) 1.0, [place] # (Auto) 0.3, Eos # (Auto) 0.2, Baso # (Auto) 0.1 02/18/19 16:16: POC Glucose 98 02/18/19 20:14: POC Glucose 111 H I & O for Last 24 hours: Intake & Output 02/16/19 02/17/19 02/18/19 02/19/19 11:59 11:59 11:59 11:59 Intake Total 1080 / 1080 920 / 920 1938 / 1938 790 / 790 Output Total 550 / 550 925 / 925 100 / 600 900 / 900 Balance 530 / 530 -5 / -5 1838 / 1338 -110 / -110 Weight 145 lb 5 oz 146 lb 4 oz 146 lb 6 oz 150 lb 9.211 oz Microbiology Reports for the Last 24 Hours: Microbiology 02/12/19 16:00 Thoracic Fluid Gram Stain - Final 02/12/19 16:00 Thoracic Fluid Body Fluid Culture - Final NO GROWTH AFTER 5 DAYS - Constitutional no acute distress - *Routine HEENT Exam Head: Present: normocephalic ENT: Present: mucous membranes moist - *Routine Respiratory Exam Comments: rhonchi throughout with bibasilar rales - *Routine Cardiovascular Exam Comments: irregular - *Routine Abdominal Exam Present: soft, normoactive bowel sounds. Absent: tenderness, distended, guarding, firm, rigid, organomegaly - *Routine Extremities Exam Comments: 1+ BLE edema - *Routine Neurological Exam Present: alert, oriented X3 Assessment and Plan (1) Pneumonia Current visit: Yes Status: Acute Category: Medical Code(s): J18.9 - Pneumonia, unspecified organism (2) Chest pain Current visit: No Status: Acute Qualifiers: Qualified Code(s): R07.2 - Precordial pain Category: Medical Code(s): R07.9 - Chest pain, unspecified (3) Pleural effusion Current visit: Yes Status: Acute Category: Medical Code(s): J90 - Pleural effusion, not elsewhere classified (4) CAD (coronary artery disease) Current visit: No Status: Chronic Qualifiers: Coronary Disease-Associated Artery/Lesion type: [place] artery [place] vs. transplanted heart: hoh heart Associated angina: without angina Qualified Code(s): I25.10 - Atherosclerotic heart disease of hoh coronary artery without angina pectoris Category: Medical Code(s): I25.10 - Atherosclerotic heart disease of hoh coronary artery without angina pectoris (5) COPD (chronic obstructive pulmonary disease) Current visit: No Status: Chronic Qualifiers: COPD type: unspecified COPD Qualified Code(s): J44.9 - Chronic obstructive pulmonary disease, unspecified Category: Medical Code(s): J44.9 - Chronic obstructive pulmonary disease, unspecified (6) History of atrial fibrillation Current visit: No Status: Chronic Category: Medical Code(s): Z86.79 - Personal history of other diseases of the circulatory system (7) Neuropathy Current visit: No Status: Chronic Category: Medical Code(s): G62.9 - Polyneuropathy, unspecified (8) PAF (paroxysmal atrial fibrillation) Current visit: No Status: Chronic Category: Medical Code(s): I48.0 - Paroxysmal atrial fibrillation (9) Pacemaker Current visit: No Status: Chronic Category: Medical Code(s): Z95.0 - Presence of cardiac pacemaker - Assessment and plan all Dx Assessment and Plan for all problems:: Continue current care. Further per Dr. Morgan.
--- NOTE | 2019-02-19 08:50 | Consult Report ---
History of Present Illness Consult date: 02/19/19 Requesting physician: Cesia Morgan Consult reason: congestive heart failure Chief complaint: SOA, left pleural effusion Additional Medical History:: 1. Cardiac cath, 03/2017 A. ANGIOGRAPHIC RESULTS: 1. The left main artery normal 2. The left anterior descending artery proximally is normal and has a mid vessel 30% concentric stenosis 3. The circumflex artery nondominant and has an ostial 40% nonflow limiting stenosis 4. The right coronary artery dominant normal 5. The PAYNE ventriculogram reveals small ventricles hyperdynamic function estimated at 85% with near cavitary obliteration 6. The left ventricular end-diastolic pressure 20 mmHg IMPRESSION: 1. Mild nonflow limiting coronary artery disease 2. Hyperdynamic ventricle consistent with hypertrophic obstructive cardiomyopathy of the elderly without demonstrable intracavitary gradient 3. Mildly elevated LVEDP 2. Paroxysmal atrial fibrillation A. Chronic anticoagulation in the form of Eliquis 3. [facility] Permanent pacemaker, placed 2010 4. 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 Echo, 09/2018, 1. Mildly enlarged left atrium, normal left ventricular size, mild concentric left ventricular hypertrophy, visually estimated ejection fraction 55% with no regional wall motion abnormality, grade 1 diastolic dysfunction seen with tissue Doppler evidence of raised left atrial pressure. 2. Mild mitral and tricuspid regurgitation 3. No significant pericardial effusion noted B. Echo, 01/2019, 1. Technically difficult study because of the patient fact in poor acoustic windows. Endocardial surfaces are poorly visualized. 2. Normal left ventricular size, moderate concentric left ventricular hypertrophy, hyperdynamic left ventricular systolic function, visually estimated ejection fraction over 65% with no regional wall motion abnormality. Presence of dynamic LVOT obstruction cannot be excluded based on this study. Diastolic parameters are inconclusive. 3. Thickened and calcified aortic valve without Doppler evidence of aortic stenosis aortic insufficiency. 4. Mild mitral and tricuspid regurgitation. 5. No significant pericardial effusion noted. 5. Hypertension 6. Hyperlipidemia 7. Diabetes mellitus type 2 8. GERD History of present illness: 88 yo [place] female resident of [place] was admitted for worsening SOA. Pt is a poor historian, partially due to language barrier. Serial CXR's showed worsening left pleural effusion that eventually required thoracentesis with symptomatic improvement. Reaccumulation of fluid noted on CXR 02/17/2019. Lasix given yesterday with patient stating she is breathing better this AM. Telemetry shows sinus rhythm with intermittent a. pacing and no significant arrhythmias. Cardiac troponin normal. Patient has low protein and albumin state. Cardiology consulted for evaluation recommendations. Patient does relate subxiphoid upper abdominal discomfort but is unable to elaborate on it. [facility] History Medical History: Reports:: Arrhythmia, Atherosclerotic Heart Disease, Atrial Fibrillation, Congestive Heart Failure, Chronic Obstructive Pulmonary Disease (COPD), Coronary Artery Disease, Diabetes Mellitus Type 2, Gastroesophageal Reflux Disease(GERD), Gastrointestinal Bleed, Hyperlipidemia, Hypertension, Internal Pacemaker, Pulmonary Embolism, Ulcer Denies:: Cancer, MRSA *Have you ever received a pneumonia vaccine?: Yes *Have you received a flu vaccine this season?: Yes Other Medical History: Reports: Anemia, Glaucoma Other Surgeries: Yes: Cardiac Catheterization, Cardiac Surgery, Cholecystectomy, Pacemaker, Other ([facility]- no stents) Amputation: No Fractures: Yes (rt knee) - *Social History Educational Level: Completed High School Smoking Status: Former smoker Tobacco Type: cigarettes Alcohol Intake: never Alcohol Intake Frequency:: other Substance Use Type: denies use *Occupational Status:: retired Housing: assisted living facility Household Members: none *Travel in the last 8 weeks: None Family Hx:: Coronary Artery Disease, Hypertension Meds Home Medications Medication Instructions Recorded Confirmed Type Saccharomyces boulardii 250 mg 250 mg PO BID 09/09/17 02/09/19 History capsule apixaban 2.5 mg tablet 2.5 mg PO BID 09/09/17 02/09/19 History calcium carbonate 600 mg calcium 600 mg PO DAILY tab 09/09/17 02/09/19 History (1,500 mg) tablet mirtazapine 15 mg tablet 15 mg PO HS 09/09/17 02/09/19 History nitroglycerin 0.4 mg sublingual 0.4 mg SUBLINGUAL Q5-15M PRN 09/09/17 02/09/19 History tablet sennosides 8.6 mg tablet 8.6 mg PO BID PRN 09/09/17 02/09/19 History ferrous sulfate 325 mg (65 mg 325 mg PO BID tab 04/07/18 02/09/19 History iron) tablet metoprolol succinate ER 25 mg 50 mg PO BID tab 04/07/18 02/09/19 History tablet,extended release 24 hr verapamil ER 180 mg 24 hr 180 mg PO DAILY 04/07/18 02/09/19 History capsule,extended release Acetaminophen [Arthritis Pain 650 mg PO TID 02/09/19 02/09/19 History Relief] Ascorbic Acid 500 mg PO DAILY 02/09/19 02/09/19 History Atorvastatin Calcium [Lipitor 10mg 10 mg PO HS 02/09/19 02/09/19 History Tablet] Cholecalciferol (Vitamin D3) 2,000 units PO DAILY 02/09/19 02/09/19 History [Vitamin D3] Famotidine 40 mg PO HS 02/09/19 02/09/19 History Gabapentin [Neurontin 300mg 300 mg PO BID 02/09/19 02/09/19 History capsule] Loperamide HCl [Anti-Diarrhea] 2 mg PO DIRECTED 02/09/19 02/09/19 History Multivitamin [One-Daily 1 each PO DAILY 02/09/19 02/09/19 History Multi-Vitamin] Potassium Chloride [K-Tab ER 20 20 meq PO BID 02/09/19 02/09/19 History mEq] Vitamin B Complex [B Complex] 1 each PO DAILY 02/09/19 02/09/19 History Allergies Allergy/AdvReac Type Severity Reaction Status Date / Time No Known Allergies Allergy Verified 10/06/18 09:02 Review of Systems - Review of Systems Review of systems:: pertinent systems reviewed and negative unless documented below - *Cardiovascular Reports shortness of breath, Denies chest pain - *Respiratory Reports cough, Reports shortness of breath - *Gastrointestinal Denies nausea, Denies vomiting - *Genitourinary Denies blood in urine - *Musculoskeletal Reports back pain, Denies joint pain - *Neurologic Denies abnormal speech, Denies behavioral changes, Denies seizure-like activity, Denies headache(s) Exam Vital signs and Labs for Last 24 Hours: Temp Pulse Resp BP Pulse Ox 97.6 F 77 20 113/45 L 97 02/19/19 08:00 02/19/19 08:00 02/19/19 08:00 02/19/19 08:00 02/19/19 08:00 Laboratory Results - last 24 hr 02/18/19 05:58: POC Glucose 82 02/18/19 11:01: POC Glucose 72 02/18/19 12:05: Sodium 146 H, Potassium 3.1 L, Chloride 109 H, Carbon Dioxide 28, Anion Gap 12.1, BUN 17, Creatinine 0.68, Estimated Creat Clear 42, Estimated GFR 82, Est GFR ( Amer) 99, Glucose 101, Calcium 7.0 L, Total Bilirubin 0.2, AST 22, ALT 10 L, Alkaline Phosphatase 51, Total Protein 5.4 L, Albumin 1.7 L, Globulin 3.7 H, Albumin/Globulin Ratio 0.5 L 02/18/19 12:05: WBC 7.1, RBC 3.69 L, Hgb 10.0 L, Hct 34.8 L, MCV 94.4, MCH 27.1, MCHC 28.7 L, RDW 14.7, Plt Count 323, MPV 8.8, Neut % (Auto) 80.1 H, Lymph % (Auto) 13.4, [place] % (Auto) 3.6, Eos % (Auto) 2.1, Baso % (Auto) 0.9, Neut # (Auto) 5.7, Lymph # (Auto) 1.0, [place] # (Auto) 0.3, Eos # (Auto) 0.2, Baso # (Auto) 0.1 02/18/19 16:16: POC Glucose 98 02/18/19 20:14: POC Glucose 111 H I & O for Last 24 hours: Intake & Output 02/16/19 02/17/19 02/18/19 02/19/19 11:59 11:59 11:59 11:59 Intake Total 1080 / 1080 920 / 920 1938 / 1938 790 / 790 Output Total 550 / 550 925 / 925 100 / 600 900 / 900 Balance 530 / 530 -5 / -5 1838 / 1338 -110 / -110 Weight 145 lb 5 oz 146 lb 4 oz 146 lb 6 oz 150 lb 9.211 oz Microbiology Reports for the Last 24 Hours: Microbiology 02/12/19 16:00 Thoracic Fluid Gram Stain - Final 02/12/19 16:00 Thoracic Fluid Body Fluid Culture - Final NO GROWTH AFTER 5 DAYS - *Routine HEENT Exam Head: Present: normocephalic Eye: Present: EOMI, PERRL ENT: Present: mucous membranes moist - *Routine Respiratory Exam Present: decreased breath sounds, rhonchi, wheezes. Absent: accessory muscle use, rales - *Routine Cardiovascular Exam Present: RRR. Absent: murmur, gallop, rubs - *Routine Abdominal Exam Present: soft. Absent: tenderness, distended, guarding - *Routine Extremities Exam Absent: edema, calf tenderness - *Routine Neurological Exam Present: alert, oriented X3, moving all extremities Assessment and Plan (1) Pneumonia Current visit: Yes Status: Acute Category: Medical Code(s): J18.9 - Pneumonia, unspecified organism (2) Chest pain Current visit: No Status: Acute Qualifiers: Qualified Code(s): R07.2 - Precordial pain Category: Medical Code(s): R07.9 - Chest pain, unspecified (3) Pleural effusion Current visit: Yes Status: Acute Category: Medical Code(s): J90 - Pleural effusion, not elsewhere classified (4) CAD (coronary artery disease) Current visit: No Status: Chronic Qualifiers: Coronary Disease-Associated Artery/Lesion type: [place] artery [place] vs. transplanted heart: [place] heart Associated angina: without angina Qualified Code(s): I25.10 - Atherosclerotic heart disease of [place] coronary artery without angina pectoris Category: Medical Code(s): I25.10 - Atherosclerotic heart disease of [place] coronary artery without angina pectoris (5) COPD (chronic obstructive pulmonary disease) Current visit: No Status: Chronic Qualifiers: COPD type: unspecified COPD Qualified Code(s): J44.9 - Chronic obstructive pulmonary disease, unspecified Category: Medical Code(s): J44.9 - Chronic obstructive pulmonary disease, unspecified (6) History of atrial fibrillation Current visit: No Status: Chronic Category: Medical Code(s): Z86.79 - Personal history of other diseases of the circulatory system (7) Neuropathy Current visit: No Status: Chronic Category: Medical Code(s): G62.9 - Polyneuropathy, unspecified (8) PAF (paroxysmal atrial fibrillation) Current visit: No Status: Chronic Category: Medical Code(s): I48.0 - Paroxysmal atrial fibrillation (9) Pacemaker Current visit: No Status: Chronic Category: Medical Code(s): Z95.0 - Presence of cardiac pacemaker (10) Hypokalemia Current visit: No Status: Acute Category: Medical Code(s): E87.6 - Hypokalemia (11) Diabetes mellitus Current visit: No Status: Chronic Qualifiers: Diabetes mellitus type: type 2 Diabetes mellitus mcfp insulin use: without party host use Diabetes mellitus complication status: without complication Qualified Code(s): E11.9 - Type 2 diabetes mellitus without complications Category: Medical Code(s): E11.9 - Type 2 diabetes mellitus without complications (12) HOCM (hypertrophic obstructive cardiomyopathy) Current visit: No Status: Chronic Category: Medical Code(s): I42.1 - Obstructive hypertrophic cardiomyopathy - Assessment and plan all Dx Assessment and Plan for all problems:: 1. Recurrent left pleural effusion with recent thoracentesis fluid analysis showing evidence of exudative pleural effusion, likely related to pneumonia but cannot exclude malignancy or other infectious process. Continue work-up/treatment for exudative pleural effusion. Continue PRN IV Lasix for symptomatic improvement. 2. HOCM, recommend continuing both beta-josse and verapamil therapy. Will increase verapamil and follow blood pressure. 3. History of paroxysmal atrial fibrillation, on chronic Eliquis therapy. 4. Nothing further to add at this time.
--- NOTE | 2019-02-19 11:44 | Electrocardiograph Report ---
APPROVED REPORT Exam: Resting ECG HR:114 bpm ECG Measurements Heart Rate 114 AXES QRSd 78 QRS 23 QT 350 T-2 QTc 482 <Conclusion> Atrial Fibrillation Low voltage QRS Poor R Wave Progression Abnormal ECG Electronically signed by : Jeremy Huff, 02/19/2019 11:44:16
[2019-02-20 05:58] LABS: Basophils % 0.6 % (0.1-2.0); Eosinophils # 0.1 K/mm3 (0.0-0.4); Eosinophils % 2.2 % (0.1-12.0); Hematocrit 32.6 % (37.0-47.0); Hemoglobin 9.5 g/dL (12.2-16.2); Lymphocytes # 0.7 K/mm3 (0.7-4.5); Lymphocytes % 13.9 % (10-50); Mean Corpuscular HGB Conc 29.2 g/dL (31.8-35.4); Mean Corpuscular Volume 91.6 fl (81-99); Monocytes # 0.3 K/mm3 (0.1-1.0); Monocytes % 6.2 % (1.7-9.3); Neutrophils # 3.6 K/mm3 (1.8-7.8); Neutrophils % 77.1 % (37.0-80.0); Platelet Count 264 K/mm3 (142-424); Red Blood Count 3.56 M/mm3 (4.20-5.40); Red Cell Distribution Width 14.8 % (11.5-17.5); White Blood Count 4.7 K/mm3 (4.8-10.8)
[2019-02-20 06:28] LABS: Anion Gap 8.3 mEq/L (5-15)
--- NOTE | 2019-02-20 09:47 | Progress Note ---
Internal Medicine - PN: Subj *Date: 02/20/19 *Time: 09:44 Interval history: She states that she does not feel well this morning. She still has some shortness of breath. It is noted that her weight is stable at 146. Spironolactone was added yesterday but the potassium is 3.3 this morning. She is still receiving supplemental potassium. The 3.3 has improved from 3.1. Her heart rate is regular with paced beats. She is moving air on the left better than she was prior to the thoracenteses. The chest x-ray from this morning is reviewed by me. It does not show a large reaccumulation of the fluid in my estimation. Again I reviewed her echo report. Exam Vital signs and Labs for Last 24 Hours: Temp Pulse Resp BP Pulse Ox 97.6 F 85 20 114/60 95 02/20/19 08:00 02/20/19 08:00 02/20/19 08:00 02/20/19 08:00 02/20/19 08:00 Laboratory Results - last 24 hr 02/18/19 09:57: Stool Occult Blood Positive A 02/19/19 06:20: POC Glucose 77 02/19/19 10:37: POC Glucose 115 H 02/19/19 20:28: POC Glucose 115 H 02/20/19 05:45: WBC 4.7 L D, RBC 3.56 L, Hgb 9.5 L, Hct 32.6 L, MCV 91.6, MCH 26.7 L, MCHC 29.2 L, RDW 14.8, Plt Count 264, MPV 9.0, Neut % (Auto) 77.1, Lymph % (Auto) 13.9, [place] % (Auto) 6.2, Eos % (Auto) 2.2, Baso % (Auto) 0.6, Neut # (Auto) 3.6, Lymph # (Auto) 0.7, [place] # (Auto) 0.3, Eos # (Auto) 0.1, Baso # (Auto) 0.0 02/20/19 05:45: Sodium 149 H, Potassium 3.3 L, Chloride 111 H, Carbon Dioxide 33 H, Anion Gap 8.3, BUN 15, Creatinine 0.72, Estimated Creat Clear 42, Estimated GFR 77, Est GFR ( Amer) 93, Glucose 93, Calcium 7.0 L 02/20/19 05:51: POC Glucose 91 I & O for Last 24 hours: Intake & Output 02/17/19 02/18/19 02/19/19 02/20/19 11:59 11:59 11:59 11:59 Intake Total 920 / 920 1938 / 1938 790 / 790 678 / 678 Output Total 925 / 925 100 / 600 1200 / 1200 1825 / 1825 Balance -5 / -5 1838 / 1338 -410 / -410 -1147 / -1147 Weight 146 lb 4 oz 146 lb 6 oz 150 lb 9.211 oz 146 lb 6 oz Microbiology Reports for the Last 24 Hours: Microbiology 02/19/19 11:05 Sputum - Expectorated Sputum Gram Stain - Final - Constitutional no acute distress (But a little lethargic. She is responsive to questions.) - *Routine HEENT Exam Head: Present: normocephalic - *Routine Respiratory Exam Present: rhonchi (Moving air bilaterally. Rhonchi particularly at the bases.) - *Routine Cardiovascular Exam Present: RRR - *Routine Abdominal Exam Present: soft. Absent: tenderness - *Routine Extremities Exam Present: edema (1+ or less.) - *Routine Neurological Exam Present: oriented X3 Assessment and Plan (1) Pneumonia Current visit: Yes Status: Acute Category: Medical Code(s): J18.9 - Pneumonia, unspecified organism (2) Chest pain Current visit: No Status: Acute Qualifiers: Qualified Code(s): R07.2 - Precordial pain Category: Medical Code(s): R07.9 - Chest pain, unspecified (3) Pleural effusion Current visit: Yes Status: Acute Category: Medical Code(s): J90 - Pleural effusion, not elsewhere classified (4) CAD (coronary artery disease) Current visit: No Status: Chronic Qualifiers: Coronary Disease-Associated Artery/Lesion type: [place] artery [place] vs. t ransplanted heart: [place] heart Associated angina: without angina Qualified Code(s): I25.10 - Atherosclerotic heart disease of [place] coronary artery without angina pectoris Category: Medical Code(s): I25.10 - Atherosclerotic heart disease of [place] coronary artery without angina pectoris (5) COPD (chronic obstructive pulmonary disease) Current visit: No Status: Chronic Qualifiers: COPD type: unspecified COPD Qualified Code(s): J44.9 - Chronic obstructive pulmonary disease, unspecified Category: Medical Code(s): J44.9 - Chronic obstructive pulmonary disease, unspecified (6) History of atrial fibrillation Current visit: No Status: Chronic Category: Medical Code(s): Z86.79 - Personal history of other diseases of the circulatory system (7) Neuropathy Current visit: No Status: Chronic Category: Medical Code(s): G62.9 - Polyneuropathy, unspecified (8) PAF (paroxysmal atrial fibrillation) Current visit: No Status: Chronic Category: Medical Code(s): I48.0 - Paroxysmal atrial fibrillation (9) Pacemaker Current visit: No Status: Chronic Category: Medical Code(s): Z95.0 - Presence of cardiac pacemaker (10) Hypokalemia Current visit: No Status: Acute Category: Medical Code(s): E87.6 - Hypokalemia (11) Diabetes mellitus Current visit: No Status: Chronic Qualifiers: Diabetes mellitus type: type 2 Diabetes mellitus cooker 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 Recheck potassium in the morning.
[2019-02-20 14:04] LABS: ABG Base Excess 9.4 mmol/L (-2.4-2.3); ABG Oxygen Saturation 95 % (90-100); ABG PCO2 45.7 mmhg (35.0-45.0); ABG PH 7.48 mmol/L (7.35-7.45); ABG TCO2 34.4 mmhg (23-27)
[2019-02-20 14:08] LABS: Allen's Test Non Applicable; Oxygen 2lpm nc %
--- NOTE | 2019-02-21 11:23 | Progress Note ---
Internal Medicine - PN: Subj *Date: 02/21/19 *Time: 11:20 Interval history: Yesterday afternoon the patient's family contacted be and they were concerned about the patient being more lethargic. Blood gas was obtained. Her gas looked fairly good for her. This morning she states that she feels a little bit better. Her family is with her and feels that she might be a little bit more responsive. Overall she does seem to have declined from her pre-hospitalized status. Today when I listen to her lungs I hear decreased breath sounds on the left compared with yesterday. Pleural effusion could be reaccumulating. Exam Vital signs and Labs for Last 24 Hours: Temp Pulse Resp BP Pulse Ox 97.8 F 73 18 121/51 L 95 02/21/19 07:59 02/21/19 07:59 02/21/19 07:59 02/21/19 07:59 02/21/19 08:00 Laboratory Results - last 24 hr 02/20/19 13:04: Specimen Source Right brachial, O2 % 2lpm nc, ABG pH 7.48 H, ABG pCO2 45.7 H, ABG pO2 72.0 L, ABG HCO3 33.0 H, ABG Total CO2 34.4 H, ABG O2 Saturation 95, ABG Base Excess 9.4 H, [place] Test Non applicable 02/20/19 15:42: POC Glucose 97 02/20/19 20:10: POC Glucose 103 02/21/19 06:02: POC Glucose 85 Laboratory Tests 02/20/19 13:04 ABG pH 7.48 H ABG pCO2 45.7 H ABG pO2 72.0 L ABG HCO3 33.0 H ABG O2 Saturation 95 I & O for Last 24 hours: Intake & Output 02/18/19 02/19/19 02/20/19 02/21/19 11:59 11:59 11:59 11:59 Intake Total 1938 / 1938 790 / 790 678 / 678 290 / 290 Output Total 100 / 600 1200 / 1200 1825 / 1825 150 / 150 Balance 1838 / 1338 -410 / -410 -1147 / -1147 140 / 140 Weight 146 lb 6 oz 150 lb 9.211 oz 146 lb 6 oz 146 lb 6 oz - Constitutional no acute distress (Weight is stable at 146) - *Routine Respiratory Exam Present: decreased breath sounds (Particularly in the left base.), rhonchi - *Routine Cardiovascular Exam Present: RRR (Regular rate and rhythm with paced beats.) - *Routine Abdominal Exam Present: soft. Absent: tenderness - *Routine Extremities Exam Present: edema (Trace to 1+) - *Routine Neurological Exam Present: alert (Somewhat more alert. No focal deficits.) Assessment and Plan (1) Pneumonia Current visit: Yes Status: Acute Category: Medical Code(s): J18.9 - Pneumonia, unspecified organism (2) Chest pain Current visit: No Status: Acute Qualifiers: Qualified Code(s): R07.2 - Precordial pain Category: Medical Code(s): R07.9 - Chest pain, unspecified (3) Pleural effusion Current visit: Yes Status: Acute Category: Medical Code(s): J90 - Pleural effusion, not elsewhere classified (4) CAD (coronary artery disease) Current visit: No Status: Chronic Qualifiers: Coronary Disease-Associated Artery/Lesion type: [place] artery [place] vs. transplanted heart: [place] heart Associated angina: without angina Qualified Code(s): I25.10 - Atherosclerotic heart disease of [place] coronary artery without angina pectoris Category: Medical Code(s): I25.10 - Atherosclerotic heart disease of [place] coronary artery without angina pectoris (5) COPD (chronic obstructive pulmonary disease) Current visit: No Status: Chronic Qualifiers: COPD type: unspecified COPD Qualified Code(s): J44.9 - Chronic obstructive pulmonary disease, unspecified Category: Medical Code(s): J44.9 - Chronic obstructive pulmonary disease, unspecified (6) History of atrial fibrillation Current visit: No Status: Chronic Category: Medical Code(s): Z86.79 - Personal history of other diseases of the circulatory system (7) Neuropathy Current visit: No Status: Chronic Category: Medical Code(s): G62.9 - Polyneuropathy, unspecified (8) PAF (paroxysmal atrial fibrillation) Current visit: No Status: Chronic Category: Medical Code(s): I48.0 - Paroxysmal atrial fibrillation (9) Pacemaker Current visit: No Status: Chronic Category: Medical Code(s): Z95.0 - Presence of cardiac pacemaker (10) Hypokalemia Current visit: No Status: Acute Category: Medical Code(s): E87.6 - Hypokalemia (11) Diabetes mellitus Current visit: No Status: Chronic Qualifiers: Diabetes mellitus type: type 2 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
[2019-02-21 12:43] LABS: Anion Gap 8.4 mEq/L (5-15)
[2019-02-21 13:12] LABS: Calcium 7.8 mg/dL (8.5-10.1)
--- NOTE | 2019-02-22 08:17 | Progress Note ---
Internal Medicine - PN: Subj *Date: 02/22/19 *Time: 08:11 Interval history: Patient states she is about the same. She continues to be short of breath and have a congestive nonproductive cough. She is eating as usual but did eat better for breakfast this morning. She states she cannot remember yesterday. She did sleep well. She denies chest pain. Trying to use the incentive spirometer. Exam Vital signs and Labs for Last 24 Hours: Temp Pulse Resp BP Pulse Ox 98.6 F 78 17 126/65 92 L 02/22/19 04:00 02/22/19 06:28 02/22/19 04:00 02/22/19 04:00 02/22/19 06:28 Laboratory Results - last 24 hr 02/21/19 11:00: POC Glucose 84 02/21/19 12:00: Sodium 147 H, Potassium 4.4 D, Chloride 112 H, Carbon Dioxide 31, Anion Gap 8.4, BUN 15, Creatinine 0.72, Estimated Creat Clear 42, Estimated GFR 77, Est GFR ( Amer) 93, Glucose 85, Calcium 7.8 L D 02/21/19 16:52: POC Glucose 98 02/21/19 20:09: POC Glucose 104 I & O for Last 24 hours: Intake & Output 02/19/19 02/20/19 02/21/19 02/22/19 11:59 11:59 11:59 11:59 Intake Total 790 / 790 678 / 678 290 / 290 340 / 340 Output Total 1200 / 1200 1825 / 1825 150 / 150 500 / 500 Balance -410 / -410 -1147 / -1147 140 / 140 -160 / -160 Weight 150 lb 9.211 oz 146 lb 6 oz 146 lb 6 oz 146 lb 6 oz Radiology Reports for the Last 24 Hours: 02/21/2019 IMPRESSION: Reaccumulation of pleural fluid left base although somewhat small and only causing blunting of the left costophrenic angle, moderate left perihilar atelectasis noted as well - Constitutional no acute distress - *Routine Respiratory Exam Comments: Decreased breath sounds in the left base. Rhonchi and crackles on the right. Crackles in the left upper lobe. - *Routine Cardiovascular Exam Present: RRR - *Routine Abdominal Exam Present: soft, normoactive bowel sounds. Absent: tenderness - *Routine Extremities Exam Absent: edema, calf tenderness - *Routine Neurological Exam Present: alert Assessment and Plan (1) Pneumonia Current visit: Yes Status: Acute Category: Medical Code(s): J18.9 - Pneumonia, unspecified organism (2) Chest pain Current visit: No Status: Acute Qualifiers: Qualified Code(s): R07.2 - Precordial pain Category: Medical Code(s): R07.9 - Chest pain, unspecified (3) Pleural effusion Current visit: Yes Status: Acute Category: Medical Code(s): J90 - Pleural effusion, not elsewhere classified (4) CAD (coronary artery disease) Current visit: No Status: Chronic Qualifiers: Coronary Disease-Associated Artery/Lesion type: [place] artery [place] vs. transplanted heart: [place] heart Associated angina: without angina Qualified Code(s): I25.10 - Atherosclerotic heart disease of [place] coronary artery without angina pectoris Category: Medical Code(s): I25.10 - Atherosclerotic heart disease of [place] artery without angina pectoris (5) COPD (chronic obstructive pulmonary disease) Current visit: No Status: Chronic Qualifiers: COPD type: unspecified COPD Qualified Code(s): J44.9 - Chronic obstructive pulmonary disease, unspecified Category: Medical Code(s): J44.9 - Chronic obstructive pulmonary disease, unspecified (6) History of atrial fibrillation Current visit: No Status: Chronic Category: Medical Code(s): Z86.79 - Personal history of other diseases of the circulatory system (7) Neuropathy Current visit: No Status: Chronic Category: Medical Code(s): G62.9 - Polyneuropathy, unspecified (8) PAF (paroxysmal atrial fibrillation) Current visit: No Status: Chronic Category: Medical Code(s): I48.0 - Paroxysmal atrial fibrillation (9) Pacemaker Current visit: No Status: Chronic Category: Medical Code(s): Z95.0 - Presence of cardiac pacemaker (10) Hypokalemia Current visit: No Status: Acute Category: Medical Code(s): E87.6 - Hypokalemia (11) Diabetes mellitus Current visit: No Status: Chronic Qualifiers: Diabetes mellitus type: type 2 Diabetes mellitus usp insulin 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 Consult pulmonology will be here 02/25/2019. Encourage use of incentive spirometer.
[2019-02-22 10:50] LABS: Anion Gap 11.4 mEq/L (5-15); Calcium 7.9 mg/dL (8.5-10.1)
[2019-02-23 06:24] LABS: Basophils % 0.7 % (0.1-2.0); Eosinophils # 0.3 K/mm3 (0.0-0.4); Hematocrit 33.1 % (37.0-47.0); Hemoglobin 9.7 g/dL (12.2-16.2); Lymphocytes # 0.7 K/mm3 (0.7-4.5); Mean Corpuscular HGB Conc 29.2 g/dL (31.8-35.4); Mean Corpuscular Volume 91.9 fl (81-99); Mean Platelet Volume 8.6 fl (7.4-10.4); Monocytes # 0.3 K/mm3 (0.1-1.0); Neutrophils # 3.4 K/mm3 (1.8-7.8); Neutrophils % 73.3 % (37.0-80.0); Platelet Count 197 K/mm3 (142-424); Red Cell Distribution Width 14.9 % (11.5-17.5); White Blood Count 4.6 K/mm3 (4.8-10.8)
[2019-02-23 06:42] LABS: Anion Gap 8.2 mEq/L (5-15); Calcium 7.9 mg/dL (8.5-10.1)
--- NOTE | 2019-02-23 08:44 | Progress Note ---
Internal Medicine - PN: Subj *Date: 02/23/19 *Time: 08:41 Interval history: Patient states she feels better today. She continues to have a congested cough and shortness of breath. She eats poorly as usual. She is out of bed yesterday and states she walked to the door. She had chest x-ray and labs this morning. Potassium is normal. No weight gain Exam Vital signs and Labs for Last 24 Hours: Temp Pulse Resp BP Pulse Ox 97.8 F 74 18 121/49 L 91 L 02/23/19 07:57 02/23/19 07:57 02/23/19 07:57 02/23/19 07:57 02/23/19 07:57 Laboratory Results - last 24 hr 02/22/19 09:48: Sodium 149 H, Potassium 4.4, Chloride 114 H, Carbon Dioxide 28, Anion Gap 11.4, BUN 17, Creatinine 0.79, Estimated Creat Clear 42, Estimated GFR 69, Est GFR ( Amer) 83, Glucose 116 H D, Calcium 7.9 L 02/22/19 11:35: POC Glucose 90 02/22/19 16:59: POC Glucose 110 02/22/19 20:27: POC Glucose 135 H 02/23/19 06:09: POC Glucose 78 02/23/19 06:10: WBC 4.6 L, RBC 3.60 L, Hgb 9.7 L, Hct 33.1 L, MCV 91.9, MCH 26.8 L, MCHC 29.2 L, RDW 14.9, Plt Count 197 D, MPV 8.6, Neut % (Auto) 73.3, Lymph % (Auto) 14.0, [place] % (Auto) 6.0, Eos % (Auto) 6.0, Baso % (Auto) 0.7, Neut # (Auto) 3.4, Lymph # (Auto) 0.7, [place] # (Auto) 0.3, Eos # (Auto) 0.3, Baso # (Auto) 0.0 02/23/19 06:10: Sodium 145, Potassium 4.2, Chloride 112 H, Carbon Dioxide 29, Anion Gap 8.2, BUN 17, Creatinine 0.66, Estimated Creat Clear 41, Estimated GFR 85, Est GFR ( Amer) 103 D, Glucose 82 D, Calcium 7.9 L I & O for Last 24 hours: Intake & Output 02/20/19 02/21/19 02/22/19 02/23/19 11:59 11:59 11:59 11:59 Intake Total 678 / 678 290 / 290 820 / 820 1495 / 1495 Output Total 1825 / 1825 150 / 150 650 / 650 250 / 250 Balance -1147 / -1147 140 / 140 170 / 170 1245 / 1245 Weight 146 lb 6 oz 146 lb 6 oz 146 lb 6 oz 144 lb 3 oz Microbiology Reports for the Last 24 Hours: Microbiology 02/19/19 11:05 Sputum - Expectorated Sputum Gram Stain - Final 02/19/19 11:05 Sputum - Expectorated Sputum Sputum Culture - Final Normal Respiratory Flor Radiology Reports for the Last 24 Hours: Chest x-ray 02/23/2019 IMPRESSION: Medium-sized left pleural effusion which is slightly increased in size with consolidation in the left lower lobe and along the major fissure. - Constitutional no acute distress Comments: Sitting up in the bed finishing breakfast. Congested cough - *Routine Respiratory Exam Comments: Breath sounds of bilateral bases with crackles - *Routine Cardiovascular Exam Present: RRR Comments: Which are showing sinus rhythm - *Routine Abdominal Exam Present: soft, normoactive bowel sounds. Absent: tenderness - *Routine Extremities Exam Present: edema (Have a trace of leg edema on the left) - *Routine Neurological Exam Present: alert Was removed yesterday. Assessment and Plan (1) Pneumonia Current visit: Yes Status: Acute Category: Medical Code(s): J18.9 - Pneumonia, unspecified organism (2) Chest pain Current visit: No Status: Acute Qualifiers: Qualified Code(s): R07.2 - Precordial pain Category: Medical Code(s): R07.9 - Chest pain, unspecified (3) Pleural effusion Current visit: Yes Status: Acute Category: Medical Code(s): J90 - Pleural effusion, not elsewhere classified (4) CAD (coronary artery disease) Current visit: No Status: Chronic Qualifiers: Coronary Disease-Associated Artery/Lesion type: [place] artery [place] vs. transplanted heart: [place] heart Associated angina: without angina Qualified Code(s): I25.10 - Atherosclerotic heart disease of [place] coronary artery without angina pectoris Category: Medical Code(s): I25.10 - Atherosclerotic heart disease of [place] coronary artery without angina pectoris (5) COPD (chronic obstructive pulmonary disease) Current visit: No Status: Chronic Qualifiers: COPD type: unspecified COPD Qualified Code(s): J44.9 - Chronic obstructive pulmonary disease, unspecified Category: Medical Code(s): J44.9 - Chronic obstructive pulmonary disease, unspecified (6) History of atrial fibrillation Current visit: No Status: Chronic Category: Medical Code(s): Z86.79 - Personal history of other diseases of the circulatory system (7) Neuropathy Current visit: No Status: Chronic Category: Medical Code(s): G62.9 - Polyneuropathy, unspecified (8) PAF (paroxysmal atrial fibrillation) Current visit: No Status: Chronic Category: Medical Code(s): I48.0 - Paroxysmal atrial fibrillation (9) Pacemaker Current visit: No Status: Chronic Category: Medical Code(s): Z95.0 - Presence of cardiac pacemaker (10) Hypokalemia Current visit: No Status: Acute Category: Medical Code(s): E87.6 - Hypokalemia (11) Diabetes mellitus Current visit: No Status: Chronic Qualifiers: Diabetes mellitus type: type 2 Diabetes mellitus terminal worker insulin 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 Morgan.
--- NOTE | 2019-02-23 09:48 | Progress Note ---
Subjective Narrative: resting Exam Vital signs and Labs for Last 24 Hours: Temp Pulse Resp BP Pulse Ox 97.8 F 74 18 121/49 L 91 L 02/23/19 07:57 02/23/19 07:57 02/23/19 07:57 02/23/19 07:57 02/23/19 07:57 Laboratory Results - last 24 hr 02/22/19 09:48: Sodium 149 H, Potassium 4.4, Chloride 114 H, Carbon Dioxide 28, Anion Gap 11.4, BUN 17, Creatinine 0.79, Estimated Creat Clear 42, Estimated GFR 69, Est GFR ( Amer) 83, Glucose 116 H D, Calcium 7.9 L 02/22/19 11:35: POC Glucose 90 02/22/19 16:59: POC Glucose 110 02/22/19 20:27: POC Glucose 135 H 02/23/19 06:09: POC Glucose 78 02/23/19 06:10: WBC 4.6 L, RBC 3.60 L, Hgb 9.7 L, Hct 33.1 L, MCV 91.9, MCH 26.8 L, MCHC 29.2 L, RDW 14.9, Plt Count 197 D, MPV 8.6, Neut % (Auto) 73.3, Lymph % (Auto) 14.0, [place] % (Auto) 6.0, Eos % (Auto) 6.0, Baso % (Auto) 0.7, Neut # (Auto) 3.4, Lymph # (Auto) 0.7, [place] # (Auto) 0.3, Eos # (Auto) 0.3, Baso # (Auto) 0.0 02/23/19 06:10: Sodium 145, Potassium 4.2, Chloride 112 H, Carbon Dioxide 29, Anion Gap 8.2, BUN 17, Creatinine 0.66, Estimated Creat Clear 41, Estimated GFR 85, Est GFR ( Amer) 103 D, Glucose 82 D, Calcium 7.9 L I & O for Last 24 hours: Intake & Output 02/20/19 02/21/19 02/22/19 02/23/19 11:59 11:59 11:59 11:59 Intake Total 678 / 678 290 / 290 820 / 820 1495 / 1495 Output Total 1825 / 1825 150 / 150 650 / 650 250 / 250 Balance -1147 / -1147 140 / 140 170 / 170 1245 / 1245 Weight 146 lb 6 oz 146 lb 6 oz 146 lb 6 oz 144 lb 3 oz Microbiology Reports for the Last 24 Hours: Microbiology 02/19/19 11:05 Sputum - Expectorated Sputum Gram Stain - Final 02/19/19 11:05 Sputum - Expectorated Sputum Sputum Culture - Final Normal Respiratory Flor Narrative: Chest x-ray reveals reaccumulation of left-sided effusion (moderate) - Constitutional no acute distress - *Routine Respiratory Exam Present: diminished air movement. Absent: respiratory distress - *Routine Cardiovascular Exam Present: RRR Progress Note: A&P (1) Pneumonia Status: Acute Current Visit: Yes (2) Chest pain Status: Acute Current Visit: No (3) Pleural effusion Status: Acute Assessment and plan: Persistent/recurrent effusion after thoracentesis (x2) with a total of 3 L removed. Repeated thoracentesis (preferably with ultrasound guidance to maximize volume removed and patient comfort) is an option. However, given the fact that the patient has continued to reaccumulate fluid ...more definitive management is likely of greater benefit. Placement of a chest tube (more thorough evacuation and possible chemical pleurodesis) is an option; however, the failure rate of this procedure is somewhat higher than VATS with pleurodesis or possible shunt placement. In addition, the associated discomfort with chest tube placement with chemical pleurodesis is significant and when combined with potentially limited benefit I do not recommend this choice for management. If the patient is agreeable the most beneficial course of action is likely to be transfer to tertiary care center with CT surgical capabilities. Current Visit: Yes (4) CAD (coronary artery disease) Status: Chronic Current Visit: No (5) COPD (chronic obstructive pulmonary disease) Status: Chronic Current Visit: No (6) History of atrial fibrillation Status: Chronic Current Visit: No (7) Neuropathy Status: Chronic Current Visit: No (8) PAF (paroxysmal atrial fibrillation) Status: Chronic Current Visit: No (9) Pacemaker Status: Chronic Current Visit: No (10) Hypokalemia Status: Acute Current Visit: No (11) Diabetes mellitus Status: Chronic Current Visit: No (12) HOCM (hypertrophic obstructive cardiomyopathy) Status: Chronic Current Visit: No
--- NOTE | 2019-02-24 08:56 | Discharge Summary ---
General - General Admission date:: 02/09/19 Discharge date: 02/23/19 HPI HPI: Ms Prado is an 88 year old female with a history of HTN, COPD, ulcers, GERD, At fib, PE, and CAD who has been treated for a respiratory infection for the past week. She has completed a course of Zithromax. She was visited by Kimmy Biggs APRN at her residence in [facility]. The patient related that she actually felt worse with a productive cough, SOB and now with mid sternal CP with any activity. She described having CP when up to the bathroom which resolved with rest. She was eating and drinking less. She denied having CP at the time of the exam. Chest exam revealed bilateral crackles. She appeared ashen and dehydrated. Condition was discussed with Dr. Knox and she was admitted to [facility] due to chest pain and worsening pulmonary status after completion of the ABX. Hospital Course Hospital Course: The patient's initial chest x-ray showed a left lower lobe pneumonia with effusion. She was admitted and started on antibiotics, duo nebs, and gentle hydration. The patient was able to ambulate around her room but became dyspneic with any exertion. She had a repeat chest x-ray on 02/11/2019 showing an interval increase in the size of the left pleural effusion with an underlying infiltrate. A CT of the chest was ordered and it showed a large left-sided pleural effusion with left lower lobe collapse as well as collapse of the lingula. There was a small right pleural effusion with pneumonia in the right lung base. Surgery was consulted and Dr. Fagan saw the patient and performed a thoracentesis. He removed 1500 mL of serous fluid. The patient did breathe much easier after the thoracentesis. She continued with the cough. Her blood cultures returned with no growth. Her sputum culture returned with normal kerri. Her thoracentesis culture also returned with no growth. She had a repeat chest x-ray on 02/15/2019 showing a moderate-sized left pleural effusion increasing in size. She had another chest x-ray on 02/16/2019 showing no change in the moderate left-sided effusion and a small right effusion with bilateral atelectasis. The patient had another thoracentesis with 1500 mL of fluid drained. Chest x-ray from 02/17/2019 after the thoracentesis showed a decrease in the size of the left pleural effusion and a developing pneumonia in the right lung base. The patient was returned to the floor after her thoracentesis and was found to be in atrial fibrillation and flutter. Her heart rate was in the 130s. Her blood pressure was running low. Cardiology was consulted and Dr. Tabares ordered a bolus of Cardizem. The patient converted to normal sinus rhythm and the pacemaker kicked in appropriately. Her blood pressure improved and she was in no distress. The patient then began having some leg edema and her weight increased. Her IV fluids were saline locked and she was given a dose of Lasix. Her potassium was low despite oral supplementation 3 times a day, the refore spironolactone was added for fluid control and to assist with the maintenance of her potassium levels. The patient had a repeat chest x-ray on 02/20/2019 showing interval reaccumulation of the left pleural fluid now with a probable left perihilar pneumonic infiltrate. She continued to feel poorly. She had another x-ray on 02/21/2019 showing reaccumulation of fluid. Dr. Fagan did see the patient again and felt she would need transfer to a tertiary care center with CT surgical capabilities. The patient was transferred to for further treatment. Objective Vital signs: Temp Pulse Resp BP Pulse Ox 97.4 F L 81 20 127/57 L 96 02/23/19 20:00 02/23/19 20:00 02/23/19 20:00 02/23/19 20:00 02/23/19 20:00 Narrative: - Constitutional no acute distress Comments: sitting in recliner in her room at and appears not to feel well - *Routine HEENT Exam Head: Present: normocephalic, atraumatic Eye: Absent: conjunctival icterus, scleral injection ENT: Present: mucous membranes moist - *Routine Neck Exam Absent: lymphadenopathy, thyromegaly - *Routine Respiratory Exam Comments: bilateral basilar crackles > on the right - *Routine Cardiovascular Exam Present: RRR - *Routine Abdominal Exam Present: soft, normoactive bowel sounds. Absent: tenderness - *Routine Extremities Exam Absent: edema - *Routine Neurological Exam Present: alert, oriented X3 Results Labs on day of discharge: Labs from last 24 hours 02/23/19 02/23/19 02/23/19 21:09 16:50 12:10 POC Glucose 111 H 119 H 84 DS: Diagnosis - Discharge Diagnosis (1) Pneumonia Status: Acute (2) Chest pain Status: Acute (3) Pleural effusion Status: Acute (4) CAD (coronary artery disease) Status: Chronic (5) COPD (chronic obstructive pulmonary disease) Status: Chronic (6) History of atrial fibrillation Status: Chronic (7) Neuropathy Status: Chronic (8) PAF (paroxysmal atrial fibrillation) Status: Chronic (9) Pacemaker Status: Chronic (10) Hypokalemia Status: Acute (11) Diabetes mellitus Status: Chronic (12) HOCM (hypertrophic obstructive cardiomyopathy) Status: Chronic Discharge Plan - Patient Discharge Instructions ACTIVITY: Bed rest DIET: continue same diet Patient Instructions: Thoracentesis, Pneumonia-Adult, DI for Heart Failure, DI for Thoracentesis, DI for Surgical Site Infection, DI for Pleural Effusion Forms: Transfer Record - Follow up Plan Follow up with: Cesia Morgan MD [Primary Care Provider] - 2 weeks Disposition: Xfer Short-Term Hosp Home Medications: Home Medications Medication Instructions Recorded Confirmed Type Saccharomyces boulardii 250 mg 250 mg PO BID 09/09/17 02/09/19 History capsule apixaban 2.5 mg tablet 2.5 mg PO BID 09/09/17 02/09/19 History calcium carbonate 600 mg calcium 600 mg PO DAILY tab 09/09/17 02/09/19 History (1,500 mg) tablet mirtazapine 15 mg tablet 15 mg PO HS 09/09/17 02/09/19 History nitroglycerin 0.4 mg sublingual 0.4 mg SUBLINGUAL Q5-15M PRN 09/09/17 02/09/19 History tablet sennosides 8.6 mg tablet 8.6 mg PO BID PRN 09/09/17 02/09/19 History ferrous sulfate 325 mg (65 mg 325 mg PO BID tab 04/07/18 02/09/19 History iron) tablet metoprolol succinate ER 25 mg 50 mg PO BID tab 04/07/18 02/09/19 History tablet,extended release 24 hr verapamil ER 180 mg 24 hr 180 mg PO DAILY 04/07/18 02/09/19 History capsule,extended release Acetaminophen [Arthritis Pain 650 mg PO TID 02/09/19 02/09/19 History Relief] Ascorbic Acid 500 mg PO DAILY 02/09/19 02/09/19 History Atorvastatin Calcium [Lipitor 10mg 10 mg PO HS 02/09/19 02/09/19 History Tablet] Cholecalciferol (Vitamin D3) 2,000 units PO DAILY 02/09/19 02/09/19 History [Vitamin D3] Famotidine 40 mg PO HS 02/09/19 02/09/19 History Gabapentin [Neurontin 300mg 300 mg PO BID 02/09/19 02/09/19 History capsule] Loperamide HCl [Anti-Diarrhea] 2 mg PO DIRECTED 02/09/19 02/09/19 History Multivitamin [One-Daily 1 each PO DAILY 02/09/19 02/09/19 History Multi-Vitamin] Potassium Chloride [K-Tab ER 20 20 meq PO BID 02/09/19 02/09/19 History mEq] Vitamin B Complex [B Complex] 1 each PO DAILY 02/09/19 02/09/19 History Prescriptions/Medication Reconciliation: New Metoprolol Succinate [Toprol XL 50mg Tablet] 50 mg PO BID tablet Spironolactone [Aldactone 25mg Tab] 25 mg PO DAILY tablet Piperacillin/Tazo [Zosyn 3.375gm ADV] 3.375 gm IV Q6H vial.port Verapamil HCl [Calan SR 120mg tablet] 240 mg PO DAILY tablet.er 0.9 % Sodium Chloride [Saline Flush 10mL syringe] 10 ml IV NEEDED PRN syringe PRN Reason: Maintain Iv Site Continued mirtazapine 15 mg tablet 15 mg PO HS Saccharomyces boulardii 250 mg capsule 250 mg PO BID calcium carbonate 600 mg calcium (1,500 mg) tablet 600 mg PO DAILY tab nitroglycerin 0.4 mg sublingual tablet 0.4 mg SUBLINGUAL Q5-15M PRN PRN Reason: Chest Pain sennosides 8.6 mg tablet 8.6 mg PO BID PRN PRN Reason: Constipation verapamil ER 180 mg 24 hr capsule,extended release 180 mg PO DAILY metoprolol succinate ER 25 mg tablet,extended release 24 hr 50 mg PO BID tab ferrous sulfate 325 mg (65 mg iron) tablet 325 mg PO BID tab Famotidine 40 mg PO HS Multivitamin [One-Daily Multi-Vitamin] 1 each PO DAILY Potassium Chloride [K-Tab ER 20 mEq] 20 meq PO BID Loperamide HCl [Anti-Diarrhea] 2 mg PO DIRECTED Gabapentin [Neurontin 300mg capsule] 300 mg PO BID Vitamin B Complex [B Complex] 1 each PO DAILY Acetaminophen [Arthritis Pain Relief] 650 mg PO TID Cholecalciferol (Vitamin D3) [Vitamin D3] 2,000 units PO DAILY Ascorbic Acid 500 mg PO DAILY Atorvastatin Calcium [Lipitor 10mg Tablet] 10 mg PO HS Discontinued apixaban 2.5 mg tablet 2.5 mg PO BID - Problem Reconciliation Problems Reviewed?: Yes
== END 2019-02-23 21:50 | disposition short-term general hospital (02) | DRG 194 ==
LOC: 2ND → OBSVTOIN 13:17 → 2ND 02-17 17:47
PROVIDERS: ADMIT Family Medicine; ATTEND Family Medicine
CPT/HCPCS: 32555; 36415; 71010; 71020; 71045; 71046; 71250; 80048; 80053; 82042; 82272; 82803; 82945; 82962; 83036; 83605; 83615; 83880; 84155; 84484; 85025; 86738; 87040; 87070; 87205; 87507; 89051; 93005; 93306; 94640; 94761; 97110; 97116; 97161; 97530; G0328; J1956; J2543